=== PATIENT | female | born 1980 | race Caucasian/White ===

== ENCOUNTER 2017-01-30 09:07 | Emergency (ER) | payer OTHER ==
[2017-01-30 09:40] VITALS: RESP 16
--- NOTE | 2017-01-30 10:31 | ED ---
General Adult HPI - General Chief complaint: ENT Stated complaint: Rt ear plugged Time Seen by Provider: 01/30/17 10:00 Source: patient, RN notes reviewed Mode of arrival: ambulatory Limitations: no limitations - History of Present Illness Initial comments: This is a 36-year-old female presents emergency Department complaining of right ear pain. Patient states his been no drainage but does hurt a little bit to move her ear there is also some deep internal pain she states. Patient states was no drainage. Patient states she's not had any upper respiratory symptoms. Patient states she's not been on any water above her head. Patient denies any recent fever chills or cough. Patient denies any difficulty breathing shortest breath. - Related Data Home Medications Medication Instructions Recorded Confirmed HYDROcodone/APAP 10-325MG [[place] 1 tab PO TID 03/28/15 12/22/16 10] Ibuprofen [Advil] 400 mg PO Q6H PRN 12/22/16 12/22/16 Previous Rx's Medication Instructions Recorded Azithromycin [Zithromax Z-pack] 250 mg PO DIRECTED #6 tab 12/22/16 methylPREDNISolone Dose Pack 4 mg PO DIRECTED #21 package 12/22/16 [Medrol Dose Pack] Amoxicillin 500 mg PO Q8H #30 capsule 01/30/17 Ayvskvfq-Owtorsbjq-Vp Otic 5 drops RIGHT EAR TID #10 ml 01/30/17 [Cortisporin Otic Soln] Allergies Allergy/AdvReac Type Severity Reaction Status Date / Time No Known Allergies Allergy Verified 01/30/17 09:50 Review of Systems ROS Statement: Those systems with pertinent positive or pertinent negative responses have been documented in the HPI. ROS Other: All systems not noted in ROS Statement are negative. Past Medical History Past Medical History: Asthma, Diabetes Mellitus Additional Past Medical History / Comment(s): add, bipolar, depression History of Any Multi-Drug Resistant Organisms: MRSA Date of last positivie culture/infection: 2008 MDRO Source:: face Past Surgical History: No Surgical Hx Reported Past Psychological History: ADD/ADHD, Anxiety, Bipolar, Depression, Panic Disorder Smoking Status: Current every day smoker Past Alcohol Use History: None Reported Past Drug Use History: Marijuana General Exam - General Exam Comments Initial Comments: GENERAL Patient is well-developed and well-nourished. Patient is in mild distress. EYES Patient's pupils are equal and round. Extraocular motion is intact ENT Patient's right ear has an edematous ear canal and the tympanic membrane is inflamed. SKIN Unremarkable NEURO The patient is alert and oriented 3 PYSCH Patient has normal interpersonal interactions. MUSCULOSKELETAL All 4 times and full range of motion Limitations: no limitations Course Vital Signs 01/30/17 09:36 Temperature 97.3 F L Pulse Rate 74 Respiratory 16 Rate Blood Pressure 112/60 O2 Sat by Pulse 96 Oximetry Disposition Clinical Impression: Otitis media, Otitis externa Disposition: HOME SELF-CARE Condition: Good Instructions: Earache (ED) Prescriptions: Amoxicillin 500 mg PO Q8H #30 capsule Tqzyiusr-Jieuhylcf-Bh Otic [Cortisporin Otic Soln] 5 drops RIGHT EAR TID #10 ml Referrals: None,Stated [Primary Care Provider] - 1-2 days Time of Disposition: 10:29
[2017-01-30 10:41] VITALS: BP 132/77; PULSE 71; TEMP 97.8
== END 2017-01-30 10:41 | disposition home or self-care (01) ==
LOC: EC 09:07
DX: H66.91 Otitis media, unspecified, right ear (principal); H60.91 Unspecified otitis externa, right ear; F17.200 Nicotine dependence, unspecified, uncomplicated; Z79.891 Long term (current) use of opiate analgesic
CPT/HCPCS: 99282

== ENCOUNTER 2017-07-31 15:34 | Emergency (ER) | payer OTHER ==
[2017-07-31 15:39] VITALS: BP 126/86; RESP 20; TEMP 98.4
--- NOTE | 2017-07-31 15:54 | ED ---
General Adult HPI - General Chief complaint: Upper Respiratory Infection Stated complaint: chest discomfort Time Seen by Provider: 07/31/17 15:40 Source: patient, RN notes reviewed Mode of arrival: ambulatory Limitations: no limitations - History of Present Illness Initial comments: Patient's a 37-year-old female who presents emergency room today with chief complaint of cough congestion over the last day. Does admit to positive sputum production that has been green in color. She denies any fever or body aches. She does admit to a history of bronchitis in the past. She states she believes she has chronic bronchitis. Patient denies any other complaints or symptoms currently. Patient denies any recent fever, chills, shortness of breath, chest pain, back pain, abdominal pain, nausea or vomiting, numbness or tingling, headaches or visual changes, or any other complaints. - Related Data Home Medications Medication Instructions Recorded Confirmed HYDROcodone/APAP 10-325MG [[place] 1 tab PO TID 03/28/15 12/22/16 10] Ibuprofen [Advil] 400 mg PO Q6H PRN 12/22/16 12/22/16 Previous Rx's Medication Instructions Recorded Azithromycin [Zithromax Z-pack] 250 mg PO DIRECTED #6 tab 12/22/16 methylPREDNISolone Dose Pack 4 mg PO DIRECTED #21 package 12/22/16 [Medrol Dose Pack] Amoxicillin 500 mg PO Q8H #30 capsule 01/30/17 Tmquzmwm-Ycbpzblmg-Uf Otic 5 drops RIGHT EAR TID #10 ml 01/30/17 [Cortisporin Otic Soln] Albuterol Inhaler [Ventolin Hfa 1 - 2 puff INHALATION Q4-6H PRN #1 07/31/17 Inhaler] inhaler Azithromycin [Zithromax Z-pack] 0 mg PO DIRECTED #6 tab 07/31/17 predniSONE 50 mg PO DAILY #5 tab 07/31/17 Allergies Allergy/AdvReac Type Severity Reaction Status Date / Time No Known Allergies Allergy Verified 07/31/17 15:38 Review of Systems ROS Statement: Those systems with pertinent positive or pertinent negative responses have been documented in the HPI. ROS Other: All systems not noted in ROS Statement are negative. Past Medical History Past Medical History: Asthma, Diabetes Mellitus Additional Past Medical History / Comment(s): add, bipolar, depression History of Any Multi-Drug Resistant Organisms: MRSA Date of last positivie culture/infection: 2008 MDRO Source:: face Past Surgical History: No Surgical Hx Reported Past Psychological History: ADD/ADHD, Anxiety, Bipolar, Depression, Panic Disorder Smoking Status: Current every day smoker Past Alcohol Use History: None Reported Past Drug Use History: Marijuana General Exam - General Exam Comments Initial Comments: General: The patient is awake and alert, in no distress, and does not appear acutely ill. Eye: Pupils are equal, round and reactive to light, extra-ocular movements are intact. No nystagmus. There is normal conjunctiva bilaterally. No signs of icterus. Ears, nose, mouth and throat: There are moist mucous membranes and no oral lesions. Neck: The neck is supple. Cardiovascular: There is a regular rate and rhythm. No murmur, rub or gallop is appreciated. Respiratory: Expiratory wheeze bilaterally with scattered rhonchi. are non- labored, breath sounds are equal. No stridor, rales. Musculoskeletal: Normal ROM, no tenderness. Strength 5/5. Sensation intact. Pulses equal bilaterally 2+. Neurological: A&O x 3. CN II-XII intact, There are no obvious motor or sensory deficits. Coordination appears grossly intact. Speech is normal. Skin: Skin is warm and dry and no rashes or lesions are noted. Psychiatric: Cooperative, appropriate mood & affect, normal judgment. Limitations: no limitations Course Vital Signs 07/31/17 07/31/17 07/31/17 15:36 16:02 16:18 Temperature 98.4 F Pulse Rate 92 86 84 Respiratory 20 Rate Blood Pressure 126/86 O2 Sat by Pulse 98 Oximetry Medical Decision Making - Medical Decision Making Patient is much improved after breathing treatment. Her vitals are stable. Chest x-ray is negative for any evidence of pneumonia. Patient will be treated for bronchitis. Started on antibiotics, steroids, albuterol inhaler. Disposition Clinical Impression: Acute bronchitis Disposition: HOME SELF-CARE Condition: Good Instructions: Acute Bronchitis (ED) Additional Instructions: Please use medication as discussed. Please follow-up with family doctor in the next 2 days of symptoms have not improved. Please return to emergency room if the symptoms increase or worsen or for any other concerns. Prescriptions: Albuterol Inhaler [Ventolin Hfa Inhaler] 1 - 2 puff INHALATION Q4-6H PRN #1 inhaler PRN Reason: Cough Azithromycin [Zithromax Z-pack] 0 mg PO DIRECTED #6 tab predniSONE 50 mg PO DAILY #5 tab Referrals: Aleks Pereira MD [STAFF PHYSICIAN] - 1-2 days Time of Disposition: 16:27
--- NOTE | 2017-07-31 15:55 | XR ---
EXAMINATION TYPE: XR chest 2V DATE OF EXAM: 07/31/2017 COMPARISON: None HISTORY: 37-year-old female with cough and shortness of breath TECHNIQUE: PA and lateral views FINDINGS: Heart normal size. Aorta and pulmonary vasculature within normal limits. Slightly low lung volumes wi th some crowding vascular markings. Strandy atelectasis mid and lower lungs. No consolidation or pleu ral effusion. IMPRESSION: Strandy areas of atelectasis. No acute cardiopulmonary process.
[2017-07-31] MEDS: IPRATROPIUM-ALBUTEROL 3 ML NEB INHALATION STA (16:02)
[2017-07-31 16:19] VITALS: PULSE 84
== END 2017-07-31 16:38 | disposition home or self-care (01) ==
LOC: EC 15:34
DX: J20.9 Acute bronchitis, unspecified (principal); F17.200 Nicotine dependence, unspecified, uncomplicated; Z79.891 Long term (current) use of opiate analgesic; Z79.899 Other long term (current) drug therapy; Z86.14 Personal history of Methicillin resistant Staphylococcus aureus infection
CPT/HCPCS: 71046; 94640; 99283

== ENCOUNTER 2017-12-13 22:50 | Emergency (ER) | payer OTHER ==
[2017-12-13 22:54] VITALS: RESP 18
--- NOTE | 2017-12-13 23:32 | XR ---
EXAMINATION TYPE: XR wrist complete RT DATE OF EXAM: 12/13/2017 COMPARISON: NONE HISTORY: Wrist pain TECHNIQUE: 4 views FINDINGS: There is no sign of fracture nor dislocation. Joint spaces are normal. Scaphoid is intact. IMPRESSION: Normal right wrist
--- NOTE | 2017-12-13 23:32 | XR ---
EXAMINATION TYPE: XR hand complete RT DATE OF EXAM: 12/13/2017 COMPARISON: NONE HISTORY: Wrist and hand pain TECHNIQUE: 3 views FINDINGS: I see no fracture nor dislocation. Metacarpals are intact. Joint spaces are normal. IMPRESSION: Negative right hand exam.
[2017-12-14 00:19] VITALS: BP 140/65; PULSE 99; TEMP 97.5
--- NOTE | 2017-12-14 01:01 | ED ---
General Adult HPI - General Chief complaint: Extremity Injury, Upper Stated complaint: Wrist injury Time Seen by Provider: 12/13/17 23:31 Source: patient Mode of arrival: ambulatory Limitations: no limitations - History of Present Illness Initial comments: This is a 37-year-old female with past medical history of asthma who presents today for chief complaint of right wrist pain 4 days. Patient states this pain started 4 days ago after punching a wall, she states she punched a wall because she was upset with someone but not in danger. patient states that the pain is localized to proximal forearm, without radiation. The pain has been constant since she punched the wall on Monday. immediately after punching the wall she did notice some swelling of the wrist, but signs of any ecchymosis. she spirits increased pain with movement and also noticed crepitus with certain movements. Patient is prescribed Hendrum 10 mg through pain clinic for chronic pain and took one on Monday for pain management. Since that day she has not taken anything to relieve the wrist pain. She presents today because the pain has not gone away and there is some mild swelling. She is concerned for possible fracture. Patient denies numbness, tingling, paresthesias, loss of sensation, coolness of the extremity, or injury to any other extremity.patient is right-hand dominant - Related Data Home Medications Medication Instructions Recorded Confirmed HYDROcodone/APAP 10-325MG [[place] 1 tab PO TID 03/28/15 12/22/16 10] Ibuprofen [Advil] 400 mg PO Q6H PRN 12/22/16 12/22/16 Previous Rx's Medication Instructions Recorded Azithromycin [Zithromax Z-pack] 250 mg PO DIRECTED #6 tab 12/22/16 methylPREDNISolone Dose Pack 4 mg PO DIRECTED #21 package 12/22/16 [Medrol Dose Pack] Amoxicillin 500 mg PO Q8H #30 capsule 01/30/17 Vaviezjv-Lzxlwyrzn-Qm Otic 5 drops RIGHT EAR TID #10 ml 01/30/17 [Cortisporin Otic Soln] Albuterol Inhaler [Ventolin Hfa 1 - 2 puff INHALATION Q4-6H PRN #1 07/31/17 Inhaler] inhaler Azithromycin [Zithromax Z-pack] 0 mg PO DIRECTED #6 tab 07/31/17 predniSONE 50 mg PO DAILY #5 tab 07/31/17 Ibuprofen [Motrin] 400 mg PO Q6HR PRN 7 Days #28 tab 12/13/17 NS Allergies Allergy/AdvReac Type Severity Reaction Status Date / Time No Known Allergies Allergy Verified 12/13/17 22:54 Review of Systems ROS Statement: Those systems with pertinent positive or pertinent negative responses have been documented in the HPI. ROS Other: All systems not noted in ROS Statement are negative. Constitutional: Denies: fever, chills, weakness Eyes: Denies: vision change Respiratory: Denies: dyspnea Cardiovascular: Denies: chest pain, dyspnea on exertion Gastrointestinal: Denies: abdominal pain, diarrhea, constipation Genitourinary: Denies: dysuria Skin: Reports: other (swelling of the right wrist). Denies: lesions Neurological: Denies: numbness, paresthesias Past Medical History Past Medical History: Asthma, Diabetes Mellitus Additional Past Medical History / Comment(s): add, bipolar, depression History of Any Multi-Drug Resistant Organisms: MRSA Date of last positivie culture/infection: 2008 MDRO Source:: face Past Surgical History: No Surgical Hx Reported Past Psychological History: ADD/ADHD, Anxiety, Bipolar, Depression, Panic Disorder Smoking Status: Current every day smoker Past Alcohol Use History: None Reported Past Drug Use History: Marijuana General Exam - General Exam Comments Initial Comments: this is a well-appearing 37-year-old female, in no acute distress Limitations: no limitations General appearance: alert, in no apparent distress Head exam: Present: atraumatic Eye exam: Present: normal appearance, PERRL Pupils: Present: normal accommodation ENT exam: Present: normal oropharynx, mucous membranes moist Neck exam: Present: normal inspection. Absent: tenderness Respiratory exam: Present: normal lung sounds bilaterally Cardiovascular Exam: Present: regular rate, normal rhythm, normal heart sounds Right Shoulder Exam: Present: normal inspection, full ROM. Absent: tenderness Upper Arm exam: Present: normal inspection, full ROM. Absent: tenderness Elbow exam: Present: normal inspection, full ROM Forearm Wrist exam: Present: full ROM, tenderness, swelling (mild). Absent: ecchymosis, deformity, crepitus, erythema, tenderness over anatomical snuff box Hand Wrist exam: Present: normal inspection, full ROM, tenderness. Absent: swelling, deformity, crepitus, erythema Neuro motor exam: Present: wrist extension intact, thumb opposition intact, fingers 2-5 abduction intact Neurosensory exam: Present: radial nerve intact, ulnar nerve intact, median nerve intact Vascular: Present: normal capillary refill, radial pulse (+2), brachial pulse (+ 2), ulnar pulse (+2) Neurological exam: Present: alert, oriented X3 Psychiatric exam: Present: normal mood Skin exam: Present: warm, dry, intact, normal color. Absent: rash Course Vital Signs 12/13/17 12/14/17 22:51 00:16 Temperature 98.1 F 97.5 F L Pulse Rate 94 99 Respiratory 18 18 Rate Blood Pressure 153/88 140/65 O2 Sat by Pulse 97 98 Oximetry Medical Decision Making - Medical Decision Making This is a well-appearing 37-year-old female who presents today for chief complaint of right wrist pain after punching a wall 4 days ago. She states that she punched a wall because she was upset with someone. Immediately following punching the wall she noticed swelling and pain in her right wrist. The pain is localized to her right wrist that is constant in nature and increases with movement. Patient took her previously prescribed Hendrum 10 mg for pain management, which helped somewhat. Today she complains of right wrist pain, crepitus, swelling. Patient denies erythema, numbness, tingling, paresthesias, loss of sensation, loss of active range of motion, lacerations, fever or chills. Patient presents to the emergency department tonight due to the pain lasting for greater than 4 days. Upon presentation vital signs within normal limits, patient appeared comfortable. Upon inspection there are no lacerations or abrasions of the right knuckles hand or forearm, there is very mild swelling of the right wrist with no evidence of ecchymosis or erythema. No tenderness over the anatomical snuffbox. There is tenderness to palpation of the right wrist, patient is still able to perform full active range of motion of the wrist and hand. Sensation intact of the upper extremity bilaterally. Radial ulnar and median nerve intact. Compartments are soft and compressible. X-rays were performed at triage of the right wrist and hand which revealed no fracture or acute process. An Jin bandage was applied to the right wrist. The case was discussed with attending physician Dr. hill, of who agreed. The patient was discharged with 600 mg ibuprofen tablets every 6 hours for pain management as needed. Pt was instructed to ice wrist as needed for swelling and to follow-up with primary care physician in one to 2 days. Plan was discussed with patient prior to discharge of which she agreed. I do feel the patient is stable and ready for discharge. Patient is instructed to return to the emergency department if symptoms worsen. Disposition Clinical Impression: Acute pain of right wrist Disposition: HOME SELF-CARE Condition: Good Instructions: Wrist Injury (ED) Additional Instructions: Pt is to follow-up with PCP in 1-2 days. OTC ibuprofen q6h PRN for pain management, and ice wrist needed for any swelling Return to the emergency department if you begin to experience worsening symptoms. Prescriptions: Ibuprofen [Motrin] 400 mg PO Q6HR PRN 7 Days #28 tab NS PRN Reason: Pain Is patient prescribed a controlled substance at d/c from ED?: No Referrals: None,Stated [Primary Care Provider] - 1-2 days Time of Disposition: 02:54
== END 2017-12-14 00:16 | disposition home or self-care (01) ==
LOC: EC 22:50
DX: M25.531 Pain in right wrist (principal); F17.200 Nicotine dependence, unspecified, uncomplicated; Z86.14 Personal history of Methicillin resistant Staphylococcus aureus infection; Z79.891 Long term (current) use of opiate analgesic; W22.01XA Walked into wall, initial encounter
CPT/HCPCS: 99283

== ENCOUNTER 2018-02-16 22:50 | Emergency (ER) | payer OTHER ==
[2018-02-16] MEDS ORDERED: LIDOCAINE/EPINEPHR/TETRACAINE 5 ML BOTTLE TOPICAL ONE (23:10)
--- NOTE | 2018-02-16 23:19 | ED ---
Wound/Laceration HPI - General Chief Complaint: Wound/Laceration Stated Complaint: lip lac, hand injury Time Seen by Provider: 02/16/18 23:05 Source: patient, RN notes reviewed, old records reviewed Mode of arrival: ambulatory Limitations: no limitations - History of Present Illness Initial Comments: Patient is a 37 year old female, and she states that she tripped and fell into her car window. Patient states that she hit her face, states her teeth went through her lower lip. Patient also c/o having right thumb pain. - Related Data Home Medications Medication Instructions Recorded Confirmed HYDROcodone/APAP 10-325MG [[place] 1 tab PO TID 03/28/15 12/22/16 10] Ibuprofen [Advil] 400 mg PO Q6H PRN 12/22/16 12/22/16 Previous Rx's Medication Instructions Recorded Azithromycin [Zithromax Z-pack] 250 mg PO DIRECTED #6 tab 12/22/16 methylPREDNISolone Dose Pack 4 mg PO DIRECTED #21 package 12/22/16 [Medrol Dose Pack] Amoxicillin 500 mg PO Q8H #30 capsule 01/30/17 Vjvincer-Bezqgbdxw-Gw Otic 5 drops RIGHT EAR TID #10 ml 01/30/17 [Cortisporin Otic Soln] Albuterol Inhaler [Ventolin Hfa 1 - 2 puff INHALATION Q4-6H PRN #1 07/31/17 Inhaler] inhaler Azithromycin [Zithromax Z-pack] 0 mg PO DIRECTED #6 tab 07/31/17 predniSONE 50 mg PO DAILY #5 tab 07/31/17 Ibuprofen [Motrin] 400 mg PO Q6HR PRN 7 Days #28 tab 12/13/17 NS Amoxicillin 500 mg PO Q12HR #14 cap 02/17/18 Allergies Allergy/AdvReac Type Severity Reaction Status Date / Time No Known Allergies Allergy Verified 02/16/18 23:04 Review of Systems ROS Statement: Those systems with pertinent positive or pertinent negative responses have been documented in the HPI. ROS Other: All systems not noted in ROS Statement are negative. Past Medical History Past Medical History: Asthma, Diabetes Mellitus Additional Past Medical History / Comment(s): add, bipolar, depression History of Any Multi-Drug Resistant Organisms: MRSA Date of last positivie culture/infection: 2008 MDRO Source:: face Past Surgical History: No Surgical Hx Reported Past Psychological History: ADD/ADHD, Anxiety, Bipolar, Depression, Panic Disorder Smoking Status: Current every day smoker Past Alcohol Use History: None Reported Past Drug Use History: Marijuana General Exam - General Exam Comments Initial Comments: 37 year old female, no distress. Limitations: no limitations General appearance: alert, in no apparent distress Head exam: Present: atraumatic, normocephalic, normal inspection Eye exam: Present: normal appearance, PERRL, EOMI. Absent: scleral icterus, conjunctival injection, periorbital swelling ENT exam: Present: normal exam, mucous membranes moist, other (2cm through and through lower lip laveration. ) Neck exam: Present: normal inspection. Absent: tenderness, meningismus, lymphadenopathy Respiratory exam: Present: normal lung sounds bilaterally. Absent: respiratory distress, wheezes, rales, rhonchi, stridor Cardiovascular Exam: Present: regular rate, normal rhythm, normal heart sounds. Absent: systolic murmur, diastolic murmur, rubs, gallop, clicks Extremities exam: Present: normal inspection, full ROM, normal capillary refill. Absent: tenderness, pedal edema, joint swelling, calf tenderness Right Hand Wrist exam: Present: normal inspection, full ROM, tenderness (over distal radius and ulna. ) Neuro motor exam: Present: wrist extension intact, thumb opposition intact, thumb IP flexion intact, thumb adduction intact, fingers 2-5 abduction intact Vascular: Present: normal capillary refill Back exam: Present: normal inspection Neurological exam: Present: alert, oriented X3, CN II-XII intact Psychiatric exam: Present: normal affect, normal mood Skin exam: Present: warm, dry, intact, normal color. Absent: rash Course Vital Signs 02/16/18 02/17/18 23:04 00:39 Temperature 97.8 F 97 F L Pulse Rate 96 84 Respiratory 18 20 Rate Blood Pressure 158/79 150/79 O2 Sat by Pulse 93 L 98 Oximetry Procedures - Laceration Laceration #1 Site: lip (lower lip) Size (cm): 2 Description: linear Depth: [id number] Anesthesia Technique: local infiltration Amount (mls): 4 Pre-repair: wound explored, irrigated extensively Type of Sutures: nylon, vicryl Size of Sutures: other (10, 5 absorbable, 5 nylon) Number of Sutures: 10 Technique: simple, interrupted Patient Tolerated Procedure: well, no complications - Orthopedic Splinting/Casting Injury #1 Side: right Upper Extremity Injury Location: wrist Upper Extremity Immobilizer: volar splint, Jin wrap, synthetic pre-padded splint Medical Decision Making - Medical Decision Making 37 year old with fall, with R wrist pain and lower lip through and through laceration. Patient wrist xray shows ulna styloid fracture, placed in volar splint. Lower lip laceration is through and through, wound was cleaned. Closed with total of [address] patient on amoxicillin for infection prevention. Discussed wound care and ortho follow up. Discussed suture care. - Radiology Data Radiology results: report reviewed Smll hairline fracture over left ulna styloid. Disposition Clinical Impression: Right wrist fracture, Lip laceration Disposition: HOME SELF-CARE Condition: Good Instructions: Facial Laceration (ED) Additional Instructions: Patient has a follow up with primary care physician and discharge specialist. Remain in splint. Take antibiotic as prescribed. Monitor for any infection. Please return to the emergency room in 7 days to have sutures removed. Please leave wound covered for the first 24-48 hours and then leave open to air after that time. Please use clean soap and water to clean the suture area to prevent scabbing over the top of your sutures. Please watch for any signs of infection which may include but not limited to increased pain, swelling, redness, fever or chills. Please return to the emergency room if any signs of infection do occur. Please return to the emergency room for any other concerns or complications. Prescriptions: Amoxicillin 500 mg PO Q12HR #14 cap Is patient prescribed a controlled substance at d/c from ED?: No Referrals: None,Stated [Primary Care Provider] - 1-2 days Jaime Lee MD [STAFF PHYSICIAN] - 1-2 days Time of Disposition: 00:26
--- NOTE | 2018-02-16 23:42 | XR ---
EXAMINATION TYPE: XR wrist complete RT DATE OF EXAM: 02/16/2018 COMPARISON: NONE HISTORY: Fall. Wrist pain TECHNIQUE: 4 views FINDINGS: I see no definite fracture nor dislocation. Joint spaces are normal. Scaphoid is intact. Th ere is a lucent line across the base of the ulnar styloid process. IMPRESSION: Possible ulnar styloid process hairline fracture.
[2018-02-17] MEDS ORDERED: AMOXICILLIN 500MG STARTER PACK 3 CAP BTL PO STA ×2 (00:25→00:34)
[2018-02-17 00:39] VITALS: BP 150/79; PULSE 84; RESP 20; TEMP 97
== END 2018-02-17 00:40 | disposition home or self-care (01) ==
LOC: EC 22:50
DX: S52.611A Displaced fracture of right ulna styloid process, initial encounter for closed fracture (principal); S01.511A Laceration without foreign body of lip, initial encounter; F17.200 Nicotine dependence, unspecified, uncomplicated; W01.198A Fall on same level from slipping, tripping and stumbling with subsequent striking against other object, initial encounter
CPT/HCPCS: 12011; 29125; 99284

== ENCOUNTER 2018-04-29 14:57 | Emergency (ER) | payer OTHER ==
[2018-04-29 15:02] VITALS: TEMP 97.6
[2018-04-29 15:49] LABS: Basophils # (A) 0.1 k/uL (0-0.2); Basophils % (A) 1 %; Eosinophils # (A) 0.3 k/uL (0-0.7); Eosinophils % (A) 3 %; HCT 41.7 % (34.0-46.0); HGB 13.3 gm/dL (11.4-16.0); Lymphocytes # (A) 2.1 k/uL (1.0-4.8); Lymphocytes % (A) 25 %; MCH 28.8 pg (25.0-35.0); MCHC 31.9 g/dL (31.0-37.0); MCV 90.3 fL (80.0-100.0); Monocytes # (A) 0.4 k/uL (0-1.0); Monocytes % (A) 5 %; Neutrophils # (A) 5.6 k/uL (1.3-7.7); Neutrophils % (A) 65 %; Platelet Count 253 k/uL (150-450); RBC 4.62 m/uL (3.80-5.40); RDW 13.3 % (11.5-15.5); WBC 8.5 k/uL (3.8-10.6)
[2018-04-29 15:57] LABS: ALT 34 U/L (9-52); AST 34 U/L (14-36); Albumin 3.5 g/dL (3.5-5.0); Alkaline Phosphatase 61 U/L (38-126); Anion Gap 7 mmol/L; Blood Urea Nitrogen 11 mg/dL (7-17); Calcium 9.1 mg/dL (8.4-10.2); Carbon Dioxide 23 mmol/L (22-30); Chloride 109 mmol/L (98-107); Glucose 160 mg/dL (74-99); Partial Thromboplastin Time 22.1 sec (22.0-30.0); Potassium 4.1 mmol/L (3.5-5.1); Prothrombin Time 9.5 sec (9.0-12.0); Sodium 139 mmol/L (137-145); Total Bilirubin 0.5 mg/dL (0.2-1.3); Total Protein 6.1 g/dL (6.3-8.2)
--- NOTE | 2018-04-29 16:19 | ED ---
General Adult HPI - General Source: patient, RN notes reviewed Mode of arrival: ambulatory Limitations: no limitations <Song Smart - Last Filed: 04/29/18 17:17> <Sarabjit Billings - Last Filed: 04/29/18 18:14> - General Chief complaint: Fall Stated complaint: FALL Time Seen by Provider: 04/29/18 15:06 - History of Present Illness Initial comments: Patient is a 38-year-old female presented to the emergency room today with a complaint of a fall occurred 2 days ago. She does admit that she was going down her basement steps and she tripped falling forward. She does admit that she does not believe there is any loss conscious. Denies any headache. Patient denies any visual change. She does admit that she's had some bruising to the left side of her ribs. She states that they seem to be feeling better. She does not that since the fall she noticed that she is been having some vaginal bleeding. She states started approximately 45 minutes after the fall. She does admit to a history of PCOS. She states that she does have a regular periods. She states that she did have a menstral cycle one week ago that was normal. She states she has been using tampons. She does admit that she's just been trying to take it easy last few days because very sore. She denies any other complaints or symptoms. Patient denies any recent fever, chills, shortness of breath, chest pain, back pain, nausea or vomiting, numbness or tingling, dysuria or hematuria, constipation or diarrhea, headaches or visual changes, or any other complaints. (Song Smart) - Related Data Home Medications Medication Instructions Recorded Confirmed HYDROcodone/APAP 10-325MG [[place] 1 tab PO QID PRN 03/28/15 04/29/18 10] ALPRAZolam [Xanax] 1 mg PO HS PRN 04/29/18 04/29/18 Dextroamphetamine/Amphetamine 20 mg PO TID 04/29/18 04/29/18 [Adderall] Allergies Allergy/AdvReac Type Severity Reaction Status Date / Time No Known Allergies Allergy Verified 04/29/18 16:05 Review of Systems ROS Other: All systems not noted in ROS Statement are negative. <Song Smart - Last Filed: 04/29/18 17:17> ROS Other: All systems not noted in ROS Statement are negative. <Sarabjit Billings - Last Filed: 04/29/18 18:14> ROS Statement: Those systems with pertinent positive or pertinent negative responses have been documented in the HPI. Past Medical History Past Medical History: Asthma, Diabetes Mellitus Additional Past Medical History / Comment(s): add, bipolar, depression History of Any Multi-Drug Resistant Organisms: MRSA Date of last positivie culture/infection: 2008 MDRO Source:: face Past Surgical History: No Surgical Hx Reported Past Psychological History: ADD/ADHD, Anxiety, Bipolar, Depression, Panic Disorder Smoking Status: Current every day smoker Past Alcohol Use History: None Reported Past Drug Use History: Marijuana <Song Smart - Last Filed: 04/29/18 17:17> General Exam Limitations: no limitations <Song Smart - Last Filed: 04/29/18 17:17> <Sarabjit Billings - Last Filed: 04/29/18 18:14> - General Exam Comments Initial Comments: General: The patient is awake and alert, in no distress, and does not appear acutely ill. Eye: Pupils are equal, round and reactive to light. Extra-ocular movements are intact. No nystagmus. There is normal conjunctiva bilaterally. No signs of icterus. Ears, nose, mouth and throat: There are moist mucous membranes and no oral lesions. Neck: The neck is supple, there is no tenderness or JVD. Cardiovascular: There is a regular rate and rhythm. No murmur, rub or gallop is appreciated. Respiratory: Lungs are clear to auscultation, respirations are non-labored, breath sounds are equal. No wheezes, stridor, rales, or rhonchi. Gastrointestinal: Soft on palpation. Mild tenderness left lower quadrant. No guarding, rebound or CVA tenderness. Musculoskeletal: Normal ROM, no tenderness. No cervical, thoracic or lumbar spine tenderness. Sensation intact. Strength 5/5. Pulses equal bilaterally 2+. Neurological: A&O x 3. CN II-XII intact, There are no obvious motor or sensory deficits. Coordination appears grossly intact. Speech is normal. Skin: Skin is warm and dry and no rashes or lesions are noted. Psychiatric: Cooperative, appropriate mood & affect, normal judgment. : [employer] ENGINEERMIRANDA Bunch wasn't for exam. Patient does have some small blood in the vaginal vault. No active bleeding. No tenderness on exam. (Song Smart) Vital Signs 04/29/18 14:59 Temperature 97.6 F Pulse Rate 84 Respiratory 16 Rate Blood Pressure 148/94 O2 Sat by Pulse 100 Oximetry Medical Decision Making - Lab Data Result diagrams: 04/29/18 15:32 04/29/18 15:32 <Song Smart - Last Filed: 04/29/18 17:17> - Lab Data Result diagrams: 04/29/18 15:32 04/29/18 15:32 <Sarabjit Billings - Last Filed: 04/29/18 18:14> - Medical Decision Making 38 yo female with trauma 2 days prior to arrival and vaginal bleeding. No vaginal trauma. Pelvic exam reveals only minimal bleeding, no laceration. Ultrasound obtained both of the uterus and abdomen which is negative for free fluid or acute pathology. Patient is stable hemoglobin, stable vitals. Likely vaginal bleeding is not related to trauma. This likely related to see her last and dysfunctional uterine bleeding. Patient will follow-up with her primary care physician. Return with worsening or changing symptoms. (Sarabjit Billings) - Lab Data Lab Results 04/29/18 04/29/18 04/29/18 Range/Units 15:32 15:32 15:32 WBC 8.5 (3.8-10.6) k/uL RBC 4.62 (3.80-5.40) m/uL Hgb 13.3 (11.4-16.0) gm/dL Hct 41.7 (34.0-46.0) % MCV 90.3 (80.0-100.0) fL MCH 28.8 (25.0-35.0) pg MCHC 31.9 (31.0-37.0) g/dL RDW 13.3 (11.5-15.5) % Plt Count 253 (150-450) k/uL Neutrophils % 65 % Lymphocytes % 25 % Monocytes % 5 % Eosinophils % 3 % Basophils % 1 % Neutrophils # 5.6 (1.3-7.7) k/uL Lymphocytes # 2.1 (1.0-4.8) k/uL Monocytes # 0.4 (0-1.0) k/uL Eosinophils # 0.3 (0-0.7) k/uL Basophils # 0.1 (0-0.2) k/uL PT 9.5 (9.0-12.0) sec INR 1.0 (<1.2) APTT 22.1 (22.0-30.0) sec Sodium 139 (137-145) mmol/L Potassium 4.1 (3.5-5.1) mmol/L Chloride 109 H (98-107) mmol/L Carbon Dioxide 23 (22-30) mmol/L Anion Gap 7 mmol/L BUN 11 (7-17) mg/dL Creatinine 0.60 (0.52-1.04) mg/dL Est GFR (CKD-EPI)AfAm >90 (>60 ml/min/1.73 sqM) Est GFR (CKD-EPI)NonAf >90 (>60 ml/min/1.73 sqM) Glucose 160 H (74-99) mg/dL Calcium 9.1 (8.4-10.2) mg/dL Total Bilirubin 0.5 (0.2-1.3) mg/dL AST 34 (14-36) U/L ALT 34 (9-52) U/L Alkaline Phosphatase 61 (38-126) U/L Total Protein 6.1 L (6.3-8.2) g/dL Albumin 3.5 (3.5-5.0) g/dL Urine Color Urine Appearance (Clear) Urine pH (5.0-8.0) Ur Specific [place] (1.001-1.035) Urine Protein (Negative) Urine Glucose (UA) (Negative) Urine Ketones (Negative) Urine Blood (Negative) Urine Nitrite (Negative) Urine Bilirubin (Negative) Urine Urobilinogen (<2.0) mg/dL Ur Leukocyte Esterase (Negative) Urine RBC (0-5) /hpf Ur Squamous Epith Cells (0-4) /hpf Urine Bacteria (None) /hpf Urine Mucus (None) /hpf Urine HCG, Qual (Not Detectd) 04/29/18 04/29/18 Range/Units 16:02 16:02 WBC (3.8-10.6) k/uL RBC (3.80-5.40) m/uL Hgb (11.4-16.0) gm/dL Hct (34.0-46.0) % MCV (80.0-100.0) fL MCH (25.0-35.0) pg MCHC (31.0-37.0) g/dL RDW (11.5-15.5) % Plt Count (150-450) k/uL Neutrophils % % Lymphocytes % % Monocytes % % Eosinophils % % Basophils % % Neutrophils # (1.3-7.7) k/uL Lymphocytes # (1.0-4.8) k/uL Monocytes # (0-1.0) k/uL Eosinophils # (0-0.7) k/uL Basophils # (0-0.2) k/uL PT (9.0-12.0) sec INR (<1.2) APTT (22.0-30.0) sec Sodium (137-145) mmol/L Potassium (3.5-5.1) mmol/L Chloride (98-107) mmol/L Carbon Dioxide (22-30) mmol/L Anion Gap mmol/L BUN (7-17) mg/dL Creatinine (0.52-1.04) mg/dL Est GFR (CKD-EPI)AfAm (>60 ml/min/1.73 sqM) Est GFR (CKD-EPI)NonAf (>60 ml/min/1.73 sqM) Glucose (74-99) mg/dL Calcium (8.4-10.2) mg/dL Total Bilirubin (0.2-1.3) mg/dL AST (14-36) U/L ALT (9-52) U/L Alkaline Phosphatase (38-126) U/L Total Protein (6.3-8.2) g/dL Albumin (3.5-5.0) g/dL Urine Color Yellow Urine Appearance Cloudy H (Clear) Urine pH 5.5 (5.0-8.0) Ur Specific [place] 1.027 (1.001-1.035) Urine Protein Trace H (Negative) Urine Glucose (UA) Negative (Negative) Urine Ketones Negative (Negative) Urine Blood Moderate H (Negative) Urine Nitrite Negative (Negative) Urine Bilirubin Negative (Negative) Urine Urobilinogen 2.0 (<2.0) mg/dL Ur Leukocyte Esterase Small H (Negative) Urine RBC 10 H (0-5) /hpf Ur Squamous Epith Cells 4 (0-4) /hpf Urine Bacteria Rare H (None) /hpf Urine Mucus Rare H (None) /hpf Urine HCG, Qual Not Detected (Not Detectd) Disposition <Song Smart - Last Filed: 04/29/18 17:17> Is patient prescribed a controlled substance at d/c from ED?: No Time of Disposition: 18:14 <Sarabjit Billings - Last Filed: 04/29/18 18:14> Clinical Impression: Vaginal bleeding, Fall Disposition: HOME SELF-CARE Condition: Good Instructions: Contusion in Adults (ED), Dysfunctional Uterine Bleeding (ED) Referrals: Jonathan Ibarra MD [STAFF PHYSICIAN] - 1-2 days
[2018-04-29 16:26] LABS: Appearance,Urine Cloudy (Clear); Bacteria,Urine Rare /hpf; Bilirubin,Urine Negative (Negative); Blood,Urine Moderate (Negative); Color,Urine Yellow; Glucose,Urine (UA) Negative (Negative); Ketones,Urine Negative (Negative); Leukocyte Esterase,Urine Small (Negative); Mucus,Urine Rare /hpf; Nitrite,Urine Negative (Negative); PH, Urine 5.5 (5.0-8.0); Protein,Urine Trace (Negative); RBC,Urine 10 /hpf (0-5); Specific Gravity,Urine 1.027 (1.001-1.035); Squamous Epithelial Cell,Urine 4 /hpf (0-4)
--- NOTE | 2018-04-29 17:27 | US ---
EXAMINATION TYPE: US abdomen complete DATE OF EXAM: 04/29/2018 COMPARISON: NONE CLINICAL HISTORY: Pain. Abdominal pain for 2 days. Nausea EXAM MEASUREMENTS: Liver Length: 20.2 cm Gallbladder Wall: 0.2 cm CBD: 0.3 cm Spleen: 10.8 cm Right Kidney: 10.9 x 4.6 x 4.3 cm Left Kidney: 10.9 x 6.4 x 5.8 cm *Technical limitations due to patient's body habitus and overlying bowel content Pancreas: Obscured by bowel gas Liver: enlarged, attenuating Gallbladder: stones Evidence for sonographic Lee's sign: no CBD: wnl Spleen: wnl Right Kidney: no evidence of hydronephrosis Left Kidney: no evidence of hydronephrosis Upper IVC: wnl Abd Aorta: visualized portions appear wnl, bifurcation obscured IMPRESSION: Numerous gallstones. No dilated ducts. No focal liver defect. Liver appears enlarged.
--- NOTE | 2018-04-29 17:28 | US ---
EXAMINATION TYPE: US transvaginal DATE OF EXAM: 04/29/2018 COMPARISON: NONE CLINICAL HISTORY: vag bleeding. Vaginal bleeding for 2 days post fall. PCOS TECHNIQUE: Transvaginal (TV). Date of LMP: march EXAM MEASUREMENTS: Uterus: 8.3 x 3.8 x 3.8 cm Endometrial Stripe: 0.4 cm Right Ovary: unable to visualize Left Ovary: 3.1 x 2.4 x 2.4 cm 1. Uterus: Anteverted, heterogeneous. Nabothian cysts. 2. Endometrium: appears wnl 3. Right Ovary: Obscured by overlying bowel gas 4. Left Ovary: follicles noted Spectral, color and waveform doppler imaging shows good arterial and venous flow within the left ov rl; there is no evidence for ovarian torsion. 5. Bilateral Adnexa: wnl 6. Posterior cul-de-sac: wnl IMPRESSION: No evidence of ovarian torsion. Right ovary not seen. No free fluid. Normal uterus and en dometrium.
--- NOTE | 2018-04-29 17:40 | XR ---
EXAMINATION TYPE: XR chest 2V DATE OF EXAM: 04/29/2018 COMPARISON: 07/31/2017 HISTORY: Pain TECHNIQUE: Frontal and lateral views of the chest are obtained. FINDINGS: Heart and mediastinum are normal. Lungs are clear. Diaphragm is normal. Bony thorax appear s normal. IMPRESSION: Normal chest. No change.
[2018-04-29 18:32] VITALS: BP 125/87; PULSE 81; RESP 17
== END 2018-04-29 18:30 | disposition home or self-care (01) ==
LOC: EC 14:57
DX: Z04.3 Encounter for examination and observation following other accident (principal); N93.9 Abnormal uterine and vaginal bleeding, unspecified; R10.814 Left lower quadrant abdominal tenderness; F90.9 Attention-deficit hyperactivity disorder, unspecified type; F41.0 Panic disorder [episodic paroxysmal anxiety]; F31.9 Bipolar disorder, unspecified; F17.200 Nicotine dependence, unspecified, uncomplicated; Z86.14 Personal history of Methicillin resistant Staphylococcus aureus infection; Z79.899 Other long term (current) drug therapy
CPT/HCPCS: 36415; 71046; 76700; 76830; 80053; 81001; 81025; 85025; 85610; 85730; 87077; 87086; 87186; 93976; 99284

== ENCOUNTER 2018-08-30 18:53 | Emergency (ER) | payer OTHER ==
[2018-08-30] MEDS ORDERED: DIPH,PERTUS(ACELL)TETVAC-LF 0.5 ML VIAL IM ONE (19:10)
[2018-08-30] MEDS ORDERED: KETOROLAC 60 MG/2 ML VIAL IM STA (19:10)
[2018-08-30 19:12] VITALS: BP 132/80; PULSE 95; RESP 18; TEMP 97
--- NOTE | 2018-08-30 19:34 | ED ---
General Adult HPI - General Chief complaint: Extremity Injury, Lower Stated complaint: foot lac Time Seen by Provider: 08/30/18 19:08 Source: patient, RN notes reviewed, old records reviewed Mode of arrival: ambulatory Limitations: no limitations - History of Present Illness Initial comments: 38-year-old female patient past medical history of asthma, diabetes, bipolar, depression presents to ED with left great toe pain. Patient reports that approximately 2 AM this morning patient had a door slam on her left great toe. Patient now has pain with ambulation. Patient has no laceration. Patient has a some ecchymoses. Patient has any other injury, denies other complaints. Patient states that she is not . Systemic: Pt denies fatigue, myalgia, fever/chills, rash. Pt denies weakness, night sweats, weight loss. Neuro: Pt denies headache, visual disturbances, syncope or pre-syncope. HEENT: Pt denies ocular discharge or irritation, otalgia, rhinorrhea, pharyngitis or notable lymphadenopathy. Cardiopulmonary: Pt denies chest pain, SOB, heart palpitations, dyspnea on exertion. Abdominal/GI: Pt denies abdominal pain, n/v/d. : Pt denies dysuria, burning w/ urination, frequency/urgency. Denies new onset urinary or bowel incontinence. MSK: Pt denies myalgia, loss of strength or function in extremities. Neuro: Pt denies new onset weakness, paresthesias. - Related Data Home Medications Medication Instructions Recorded Confirmed HYDROcodone/APAP 10-325MG [[place] 1 tab PO QID PRN 03/28/15 04/29/18 10] ALPRAZolam [Xanax] 1 mg PO HS PRN 04/29/18 04/29/18 Dextroamphetamine/Amphetamine 20 mg PO TID 04/29/18 04/29/18 [Adderall] Allergies Allergy/AdvReac Type Severity Reaction Status Date / Time No Known Allergies Allergy Verified 08/30/18 19:09 Review of Systems ROS Statement: Those systems with pertinent positive or pertinent negative responses have been documented in the HPI. ROS Other: All systems not noted in ROS Statement are negative. Past Medical History Past Medical History: Asthma, Diabetes Mellitus Additional Past Medical History / Comment(s): add, bipolar, depression History of Any Multi-Drug Resistant Organisms: MRSA Date of last positivie culture/infection: 2009 MDRO Source:: face Past Surgical History: No Surgical Hx Reported Past Psychological History: ADD/ADHD, Anxiety, Bipolar, Depression, Panic Disorder Smoking Status: Current every day smoker Past Alcohol Use History: None Reported Past Drug Use History: Marijuana General Exam - General Exam Comments Initial Comments: Constitutional: NAD, AOX3, Pt has pleasant affect. HEENT: NC/AT, trachea midline, neck supple, no lymphadenopathy. Posterior phary nx non erythematous, without exudates. External ears appear normal, without discharge. Mucous membranes moist. Eyes PERRLA, EOM intact. There is no scleral icterus. No pallor noted. Cardiopulmonary: RRR, no murmurs, rubs or gallops, no JVD noted. Lungs CTAB in anterior and posterior gonzalez. No peripheral edema. Abdominal exam: Abdomen soft and non-distended. Abdomen non-tender to palpation in all 4 quadrants. Bowel sounds active in LLQ. No hepatosplenomegaly. No ecchymosis Neuro: CN II-XII grossly intact. No nuchal rigidity. MSK: Left great toe mildly tender to palpation, mild ecchymoses noted and distal pad. Flexion extension intact. Patient laboratory with pain. Neurovascularly intact. No other areas of tenderness. No posterior calf tenderness bilaterally, homans sign negative bilaterally. Posterior tibialis and radial pulse +2 bilaterally. Sensation intact in upper and lower extremities. Full active ROM in upper and lower extremities, 5/5 stregnth. Limitations: no limitations Course Vital Signs 08/30/18 19:09 Temperature 97 F L Pulse Rate 95 Respiratory 18 Rate Blood Pressure 132/80 O2 Sat by Pulse 96 Oximetry Medical Decision Making - Medical Decision Making 38-year-old female patient past medical history of asthma, diabetes, bipolar, depression presents to ED with left great toe pain. Patient reports that approximately 2 AM this morning patient had a door slam on her left great toe. Patient now has pain with ambulation. Patient has no laceration. Patient has a some ecchymoses. Patient has any other injury, denies other complaints. Patient states that she is not . Patient vital signs stable, afebrile. Left great toe mildly tender to palpation, mild ecchymoses noted and distal pad. Flexion extension intact. Patient laboratory with pain. Neurovascularly intact. No other areas of tenderness. Plain film of left foot displayed acute intra-articular fracture of the base of the distal pharynx of great toe. Patient placed in postop walking boot. Patient not bear weight, use crutches. Patient to follow-up with primary care provider and orthopedic consult 1-2 days. Patient return to ER if Condition worsen. Discussed with Dr. Pope. Disposition Clinical Impression: Fractured great toe Disposition: HOME SELF-CARE Condition: Stable Instructions (If sedation given, give patient instructions): Toe Fracture (ED) Additional Instructions: Patient to adhere to previously discussed treatment plan and will take medication(s) as directed. Patient to follow up with PCP in 1-2 days. Patient to return to ED if symptoms do not improve. Please do not bear weight on her ankle. Please use crutches. Please follow-up with orthopedic consult 1-2 days. Please return to ER if he symptoms develop or if condition worsens in any way. Is patient prescribed a controlled substance at d/c from ED?: No Referrals: Jonathan Ibarra MD [Primary Care Provider] - 1-2 days Giovanni Zaldivar DO [Medical Doctor] - 1-2 days
--- NOTE | 2018-08-30 19:46 | XR ---
EXAMINATION TYPE: XR foot complete LT DATE OF EXAM: 08/30/2018 COMPARISON: NONE HISTORY: Foot pain TECHNIQUE: 3 views FINDINGS: There is hallux valgus. Metatarsals are intact. There is nondisplaced fracture of the base of the distal phalanx of the big toe. Fracture line extends to the articular surface. IMPRESSION: Acute intra-articular fracture of the base of the distal phalanx big toe left foot. Moderate hallux valgus.
== END 2018-08-30 20:24 | disposition home or self-care (01) ==
LOC: EC 18:53
DX: S92.422A Displaced fracture of distal phalanx of left great toe, initial encounter for closed fracture (principal); F90.9 Attention-deficit hyperactivity disorder, unspecified type; F17.200 Nicotine dependence, unspecified, uncomplicated; Z79.899 Other long term (current) drug therapy; Z86.14 Personal history of Methicillin resistant Staphylococcus aureus infection; Z23 Encounter for immunization; W22.8XXA Striking against or struck by other objects, initial encounter
CPT/HCPCS: 99283 ×2; 90471 ×2; 96372 ×2; 73630; 90715; J1885

== ENCOUNTER 2018-10-22 17:03 | Emergency (ER) | payer OTHER ==
[2018-10-22 17:12] VITALS: RESP 18
--- NOTE | 2018-10-22 18:43 | XR ---
EXAMINATION TYPE: XR chest 2V DATE OF EXAM: 10/22/2018 COMPARISON: 04/29/2018 HISTORY: Cough and congestion TECHNIQUE: Frontal and lateral views of the chest are obtained. FINDINGS: Heart and mediastinum are normal. Lungs are clear. Diaphragm is normal. Bony thorax appear s normal. IMPRESSION: Normal chest. No change.
--- NOTE | 2018-10-22 18:48 | XR ---
EXAMINATION TYPE: XR shoulder complete LT DATE OF EXAM: 10/22/2018 COMPARISON: NONE HISTORY: Shoulder pain. TECHNIQUE: 2 views FINDINGS: I see no fracture nor dislocation. Joint spaces are normal. There are no pathologic calcifications IMPRESSION: Negative left shoulder exam.
--- NOTE | 2018-10-22 19:00 | ED ---
General Adult HPI - General Chief complaint: ENT Stated complaint: ENT & Shoulder Pain Time Seen by Provider: 10/22/18 17:23 Source: patient, RN notes reviewed, old records reviewed Mode of arrival: ambulatory Limitations: no limitations - History of Present Illness Initial comments: 38-year-old female patient past medical history of chronic pain, ADHD, anxiety presents ED approximately 2 days of mild cough, sore throat congestion. Patient any nausea vomiting diarrhea chest pain shortness of breath, fevers or chills. Patient is additionally complained of approximately 1 month of right shoulder pain. Patient initially injured his shoulder while doing housework states that it is painful range of motion lifting exercises. Patient denies all other complaints. Systemic: Pt denies fatigue, myalgia, fever/chills, rash. Pt denies weakness, night sweats, weight loss. Neuro: Pt denies headache, visual disturbances, syncope or pre-syncope. HEENT: Pt denies ocular discharge or irritation, otalgia, rhinorrhea, pharyngitis or notable lymphadenopathy. Cardiopulmonary: Pt denies chest pain, SOB, heart palpitations, dyspnea on exertion. Abdominal/GI: Pt denies abdominal pain, n/v/d. : Pt denies dysuria, burning w/ urination, frequency/urgency. Denies new onset urinary or bowel incontinence. MSK: Pt denies myalgia, loss of strength or function in extremities. Neuro: Pt denies new onset weakness, paresthesias. - Related Data Home Medications Medication Instructions Recorded Confirmed HYDROcodone/APAP 10-325MG [[place] 1 tab PO QID PRN 03/28/15 10/22/18 10] ALPRAZolam [Xanax] 1 mg PO HS PRN 04/29/18 10/22/18 Dextroamphetamine/Amphetamine 20 mg PO TID 04/29/18 10/22/18 [Adderall] PARoxetine HCL [Paxil] 30 mg PO DAILY 10/22/18 10/22/18 Allergies Allergy/AdvReac Type Severity Reaction Status Date / Time No Known Allergies Allergy Verified 10/22/18 17:12 Review of Systems ROS Statement: Those systems with pertinent positive or pertinent negative responses have been documented in the HPI. ROS Other: All systems not noted in ROS Statement are negative. Past Medical History Past Medical History: Asthma, Diabetes Mellitus Additional Past Medical History / Comment(s): add, bipolar, depression History of Any Multi-Drug Resistant Organisms: MRSA Date of last positivie culture/infection: 2008 MDRO Source:: face Past Surgical History: No Surgical Hx Reported Past Psychological History: ADD/ADHD, Anxiety, Bipolar, Depression, Panic Disorder Smoking Status: Current every day smoker Past Alcohol Use History: None Reported Past Drug Use History: Marijuana General Exam - General Exam Comments Initial Comments: Constitutional: NAD, AOX3, Pt has pleasant affect. HEENT: NC/AT, trachea midline, neck supple, no lymphadenopathy. Posterior pharynx mildly erythematous, without exudates. External ears appear normal, without discharge. Mucous membranes moist. Eyes PERRLA, EOM intact. There is no scleral icterus. No pallor noted. Cardiopulmonary: RRR, no murmurs, rubs or gallops, no JVD noted. Lungs CTAB in anterior and posterior gonzalez. No peripheral edema. Abdominal exam: Abdomen soft and non-distended. Abdomen non-tender to palpation in all 4 quadrants. Bowel sounds active in LLQ. No hepatosplenomegaly. No ecchymosis Neuro: CN II-XII grossly intact. No nuchal rigidity. MSK: Right shoulder mildly tender to the patient in anterior aspect. Painful arc positive. empty can test positive. Radial pulse +2. No posterior calf tenderness bilaterally, homans sign negative bilaterally. Posterior tibialis and radial pulse +2 bilaterally. Sensation intact in upper and lower extremities. Full active ROM in upper and lower extremities, 5/5 stregnth. Limitations: no limitations Course Vital Signs 10/22/18 17:10 Temperature 97.7 F Pulse Rate 75 Respiratory 18 Rate Blood Pressure 114/79 O2 Sat by Pulse 98 Oximetry Medical Decision Making - Medical Decision Making 38-year-old female patient past medical history of chronic pain, ADHD, anxiety presents ED approximately 2 days of mild cough, sore throat congestion. Patient any nausea vomiting diarrhea chest pain shortness of breath, fevers or chills. Patient is additionally complained of approximately 1 month of right shoulder pain. Patient initially injured his shoulder while doing housework states that it is painful range of motion lifting exercises. Patient denies all other complaints. Patient vital signs stable, afebrile. Physical exam displayed: Right shoulder mildly tender to the patient in anterior aspect. Painful arc positive. empty can test positive. Posterior pharynx mildly erythematous, without exudates. Laboratory investigations investigations revealed negative chest x-ray. Patient has viral syndrome. Patient discharged to follow up with primary care provider in 1-2 days. Pt will return to ER if condition worsens. Case discussed with Dr. Pope. - Lab Data Lab Results 10/22/18 10/22/18 Range/Units 18:05 18:05 Urine HCG, Qual Not Detected (Not Detectd) Influenza Type A RNA Not Detected (Not Detectd) Influenza Type B (PCR) Not Detected (Not Detectd) Disposition Clinical Impression: Viral syndrome Disposition: HOME SELF-CARE Condition: Stable Instructions (If sedation given, give patient instructions): Shoulder Sprain (ED), Viral Syndrome (ED) Additional Instructions: Patient to adhere to previously discussed treatment plan and will take medication(s) as directed. Patient to follow up with PCP in 1-2 days. Patient to return to ED if symptoms do not improve. Follow-up with primary care provider 12 days. Follow with orthopedic consult 1- 2 days. May use tylenol or ibuprofen for shoulder pain. Return to ER if condition worsens. Is patient prescribed a controlled substance at d/c from ED?: No Referrals: Jonathan Ibarra MD [Primary Care Provider] - 1-2 days Jhonny Delgado MD [Medical Doctor] - 1-2 days
--- NOTE | 2018-10-22 19:13 | XR ---
EXAMINATION TYPE: XR shoulder complete RT DATE OF EXAM: 10/22/2018 COMPARISON: NONE HISTORY: Pain TECHNIQUE: 3 views FINDINGS: I see no fracture nor dislocation. Joint spaces are normal. There are no pathologic calcifi cations. IMPRESSION: Negative right shoulder exam.
[2018-10-22 19:52] VITALS: BP 121/65; PULSE 78; TEMP 97.6
== END 2018-10-22 19:52 | disposition home or self-care (01) ==
LOC: EC 17:03
DX: B34.9 Viral infection, unspecified (principal); G89.29 Other chronic pain; M25.511 Pain in right shoulder; F90.9 Attention-deficit hyperactivity disorder, unspecified type; F41.0 Panic disorder [episodic paroxysmal anxiety]; F31.9 Bipolar disorder, unspecified; F17.200 Nicotine dependence, unspecified, uncomplicated; Z79.899 Other long term (current) drug therapy
CPT/HCPCS: 71046; 81025; 87502; 99284

== ENCOUNTER 2019-03-08 00:33 | Emergency (ER) | payer OTHER ==
[2019-03-08 00:50] VITALS: BP 137/89; PULSE 97; RESP 18; TEMP 98.9
[2019-03-08] MEDS ORDERED: ACETAMINOPHEN TAB 500 MG TAB PO STA (01:06)
[2019-03-08] MEDS ORDERED: KETOROLAC 30 MG/ML 1 ML VIAL IM STA (01:06)
[2019-03-08] MEDS ORDERED: PANTOPRAZOLE 40 MG TABLET PO STA (01:07)
--- NOTE | 2019-03-08 01:23 | ED ---
Extremity Problem HPI - General Chief complaint: Extremity Problem,Nontraumatic Stated complaint: Shoulder pain Time Seen by Provider: 03/08/19 00:54 Source: patient Mode of arrival: ambulatory Limitations: physical limitation - History of Present Illness Initial comments: Patient is 38-year-old female presenting to emergency Department with a chief complaint of shoulder pain. Patient reports she had a traumatic accident in the right shoulder 2 months ago and has not resolved. Patient reports going to the ED where an x-ray was obtained and it was negative. Patient states that she was diagnosed with a possible rotator cuff injury. Patient was advised to follow-up with orthopedics. Patient reports going back to her primary care who ordered an MRI. Patient has an MRI scheduled next couple days. Patient reports the pain has increased in severity over the last few days and she is unable to sleep. Patient reports taking [id number] ibuprofen and [place] does feel her pain management physician. Patient reports pain with shoulder abduction above 90. Patient also reports shooting pain starting at the shoulder and radiating distally. Patient denies any numbness or tingling. - Related Data Home Medications Medication Instructions Recorded Confirmed HYDROcodone/APAP 10-325MG [[place] 1 tab PO QID PRN 03/28/15 03/08/19 10] ALPRAZolam [Xanax] 1 mg PO HS PRN 04/29/18 03/08/19 Dextroamphetamine/Amphetamine 20 mg PO TID 04/29/18 03/08/19 [Adderall] PARoxetine HCL [Paxil] 30 mg PO DAILY 10/22/18 03/08/19 Previous Rx's Medication Instructions Recorded Albuterol Nebulized [Ventolin 2.5 mg INHALATION Q4H #50 nebu 12/19/18 Nebulized] Allergies Allergy/AdvReac Type Severity Reaction Status Date / Time No Known Allergies Allergy Verified 03/08/19 00:49 Review of Systems ROS Statement: Those systems with pertinent positive or pertinent negative responses have been documented in the HPI. ROS Other: All systems not noted in ROS Statement are negative. Past Medical History Past Medical History: Asthma, Diabetes Mellitus Additional Past Medical History / Comment(s): add, bipolar, depression History of Any Multi-Drug Resistant Organisms: MRSA Date of last positivie culture/infection: 2008 MDRO Source:: face Past Surgical History: No Surgical Hx Reported Past Psychological History: ADD/ADHD, Anxiety, Bipolar, Depression, Panic Disorder Smoking Status: Current every day smoker Past Alcohol Use History: Occasional Past Drug Use History: Marijuana General Exam Limitations: no limitations General appearance: alert, in no apparent distress Head exam: Present: atraumatic, normocephalic, normal inspection Eye exam: Present: normal appearance, PERRL, EOMI Pupils: Present: normal accommodation ENT exam: Present: normal exam, normal oropharynx, mucous membranes moist, TM's normal bilaterally, normal external ear exam Neck exam: Present: normal inspection, full ROM Respiratory exam: Present: normal lung sounds bilaterally Cardiovascular Exam: Present: regular rate, normal rhythm, normal heart sounds Extremities exam: Present: normal inspection (No bony abnormalities), tenderness (Posterior deltoid tenderness), normal capillary refill, other (+2 ulnar and radial pulses bilaterally.). Absent: full ROM (Limited range of motion above 90 with abduction. Positive Hoeck's test. Positive empty can test.), pedal edema, joint swelling Back exam: Present: normal inspection, full ROM Neurological exam: Present: alert, oriented X3 Psychiatric exam: Present: normal affect, normal mood Skin exam: Present: warm, intact, normal color Course Vital Signs 03/08/19 00:46 Temperature 98.9 F Pulse Rate 97 Respiratory 18 Rate Blood Pressure 137/89 O2 Sat by Pulse 94 L Oximetry Medical Decision Making - Medical Decision Making Patient 38-year-old female presenting to emergency Department with a chief complaint of right shoulder pain. Patient reports a nontraumatic injury approximately 2 months ago and she came to the ED for evaluation and was diagnosed with a shoulder sprain. Patient reports the pain continued and the following month she went to separate ED where she was diagnosed with a possible rotator cuff injury. Patient reports she went to her primary care following that who scheduled an MRI. Patient reports over past few days the pain has increased in severity and is not enabling her to sleep. On physical examination patient does have a positive Yoon and empty can test. Patient does have pain with abduction above 90. I reviewed the imaging and there is no fractures or dislocations. Based on imaging and physical examination I do suspect a rotator cuff injury. Patient advised to follow-up with an customer resolution specialist for further management. Patient given analgesia. Strict return parameters were thoroughly discussed the patient was understanding and agreeable. Case discussed with physician. Disposition Clinical Impression: Shoulder pain, right Disposition: HOME SELF-CARE Condition: Stable Instructions (If sedation given, give patient instructions): Rotator Cuff Injury (ED) Additional Instructions: Please follow up with orthopedics. Please return to emergency department if symptoms worsen. Is patient prescribed a controlled substance at d/c from ED?: No Referrals: Jonathan Ibarra MD [Primary Care Provider] - 1-2 days Time of Disposition: 01:31
== END 2019-03-08 01:49 | disposition home or self-care (01) ==
LOC: EC 00:33
DX: M25.511 Pain in right shoulder (principal); R60.9 Edema, unspecified; M25.40 Effusion, unspecified joint; F90.9 Attention-deficit hyperactivity disorder, unspecified type; F31.9 Bipolar disorder, unspecified; F41.9 Anxiety disorder, unspecified; F41.0 Panic disorder [episodic paroxysmal anxiety]; F17.200 Nicotine dependence, unspecified, uncomplicated; Z79.899 Other long term (current) drug therapy; Z87.828 Personal history of other (healed) physical injury and trauma
CPT/HCPCS: 99283; 96372; J1885

== ENCOUNTER → 2019-03-29 | Outpatient (CLI) | payer OTHER ==
--- NOTE | 2019-03-29 13:01 | MR ---
EXAMINATION TYPE: MR shoulder RT wo con DATE OF EXAM: 03/29/2019 COMPARISON: Plain film 10/22/2018 HISTORY: Right shoulder pain TECHNIQUE: Multiplanar, multisequence imaging of the right shoulder is performed without contrast. FINDINGS: Rotator Cuff: There is abnormal increased signal involving the rotator cuff. Findings suggest underly ing tendinosis. Fluid signal is present at the undersurface which may represent a partial thickness t ear at the level of the insertion of the rotator cuff. The rotator cuff is attenuated. Acromioclavicular Joint: Acromioclavicular joint arthropathy is present, this mass effect and muscula r tendinous junction of supraspinatus. Glenohumeral Joint: Intact Labrum: There is some intrasubstance signal present. Biceps Tendon: The long head of biceps is in normal location within bicipital groove. Bone marrow signal: Probable pseudocysts present within the humeral head. Other: Fluid signal present in the subacromial subdeltoid bursa. IMPRESSION: Correlate for impingement, there is rotator cuff tendinosis and possibly partial thickness tear. Acro mioclavicular joint arthropathy.
== END | disposition home or self-care (01) ==
LOC: RADMRIMAIN 09:27
PROVIDERS: ATTEND Family Medicine
DX: M12.811 Other specific arthropathies, not elsewhere classified, right shoulder (principal)

== ENCOUNTER 2019-05-28 14:26 | Emergency (ER) | payer OTHER ==
[2019-05-28 14:41] VITALS: BP 126/85; PULSE 87; RESP 18; TEMP 100
--- NOTE | 2019-05-28 14:59 | ED ---
URI HPI - General Chief Complaint: Upper Respiratory Infection Stated Complaint: throat,chest,head cold Time Seen by Provider: 05/28/19 14:42 Source: patient Mode of arrival: ambulatory Limitations: no limitations - History of Present Illness Initial Comments: 39-year-old female presents today for chief complaint of sore throat cough. Patient states that she has had a sore throat and cough for the past few days she states her son has had similar symptoms for the past 5 days. She states she has had chills that she has a fever. Patient denies any chest pain she states she has had a slight headache denies any neck stiffness or photophobia. Patient denies abdominal pain diarrhea or vomiting patient denies . Patient denies any difficulty breathing or shortness of breath. Patient denies rash or any other complaints. upon arrival patient temperature 100F appears nontoxic. - Related Data Home Medications Medication Instructions Recorded Confirmed HYDROcodone/APAP 10-325MG [[place] 1 tab PO QID PRN 03/28/15 03/08/19 10] ALPRAZolam [Xanax] 1 mg PO HS PRN 04/29/18 03/08/19 Dextroamphetamine/Amphetamine 20 mg PO TID 04/29/18 03/08/19 [Adderall] PARoxetine HCL [Paxil] 30 mg PO DAILY 10/22/18 03/08/19 Previous Rx's Medication Instructions Recorded Albuterol Nebulized [Ventolin 2.5 mg INHALATION Q4H #50 nebu 12/19/18 Nebulized] Azithromycin [Zithromax Z-pack] 0 mg PO DIRECTED #6 tab 05/28/19 predniSONE 20 mg PO BID 4 Days #8 tab 05/28/19 Allergies Allergy/AdvReac Type Severity Reaction Status Date / Time No Known Allergies Allergy Verified 05/28/19 14:40 Review of Systems ROS Statement: Those systems with pertinent positive or pertinent negative responses have been documented in the HPI. ROS Other: All systems not noted in ROS Statement are negative. Past Medical History Past Medical History: Asthma, Diabetes Mellitus Additional Past Medical History / Comment(s): add, bipolar, depression History of Any Multi-Drug Resistant Organisms: MRSA Date of last positivie culture/infection: 2008 MDRO Source:: face Past Surgical History: No Surgical Hx Reported Past Psychological History: ADD/ADHD, Anxiety, Bipolar, Depression, Panic Disord er Smoking Status: Current every day smoker Past Alcohol Use History: Occasional Past Drug Use History: Marijuana General Exam - General Exam Comments Initial Comments: General: The patient is awake and alert, in no distress, and does not appear acutely ill. Eye: +3 mm pupils are equal, round and reactive to light, extra-ocular movements are intact. No nystagmus. There is normal conjunctiva bilaterally. No signs of icterus. No photophobia Ears, nose, mouth and throat: There are moist mucous membranes and no oral lesions. Oropharynx was mildly erythematous there is no tonsillar enlargement exudates or lesions. Uvula midline. Tympanic membranes are not erythematous or is no effusions bulging or retraction. No tenderness to palpation of the mastoid. No anterior cervical lymphadenopathy. Rhinorrhea, clear and bilateral nares. No tripoding, no drooling. Neck: The neck is supple, there is no tenderness or JVD. No nuchal rigidity Cardiovascular: There is a regular rate and rhythm. No murmur, rub or gallop is appreciated. Respiratory: Lungs are clear to auscultation, respirations are non-labored, breath sounds are equal. No wheezes, stridor, rales, or rhonchi. No retractions or abdominal breathing. Gastrointestinal: Soft, non-distended, non-tender abdomen without masses or organomegaly noted. There is no rebound or guarding present. Bowel sounds are unremarkable. Musculoskeletal: Normal ROM, no tenderness. Strength 5/5. Sensation intact. Ra dial pulses equal bilaterally 2+. Neurological: A&O x 3. CN II-XII intact grossly, There are no obvious motor or sensory deficits. Coordination appears grossly intact. Speech appears normal, no muffling. Skin: Skin is warm and dry and no rashes or lesions are noted. No extremity edema Psychiatric: Cooperative Limitations: no limitations Course Vital Signs 05/28/19 14:39 Temperature 100.0 F H Pulse Rate 87 Respiratory 18 Rate Blood Pressure 126/85 O2 Sat by Pulse 97 Oximetry Medical Decision Making - Medical Decision Making Well appearing 39 year old female presenting for cough sore throat. Throat mildly erythematous no tonsillar enlargement or exudates or lesions noted. Patient has low-grade fever. + sick contacts. Patient lungs clear however with low grade fever concern for bronchitis vs possible developing pnuemonia. Patient denies CP, SOB. oxygenating well on RA. Will be treated with z-pack steroids. Patient agreeable with care plan and discharge. Discussed case with Dr. Damico who is agreeable with care plan and discharge. Disposition Clinical Impression: URI (upper respiratory infection) Disposition: HOME SELF-CARE Condition: Good Instructions (If sedation given, give patient instructions): Upper Respiratory Infection (ED) Additional Instructions: Please use medication as discussed. Please follow-up with family doctor in the next 2 days of symptoms have not improved. Please return to emergency room if the symptoms increase or worsen or for any other concerns. Prescriptions: predniSONE 20 mg PO BID 4 Days #8 tab Azithromycin [Zithromax Z-pack] 0 mg PO DIRECTED #6 tab Is patient prescribed a controlled substance at d/c from ED?: No Referrals: Jonathan Ibarra MD [Primary Care Provider] - 1-2 days Time of Disposition: 14:59
== END 2019-05-28 15:10 | disposition home or self-care (01) ==
LOC: EC 14:26
DX: J02.9 Acute pharyngitis, unspecified (principal); F90.9 Attention-deficit hyperactivity disorder, unspecified type; F41.0 Panic disorder [episodic paroxysmal anxiety]; F41.9 Anxiety disorder, unspecified; F31.9 Bipolar disorder, unspecified; F17.200 Nicotine dependence, unspecified, uncomplicated; Z79.899 Other long term (current) drug therapy; Z86.14 Personal history of Methicillin resistant Staphylococcus aureus infection
CPT/HCPCS: 99283

== ENCOUNTER 2019-08-29 16:36 | Emergency (ER) | payer OTHER ==
[2019-08-29 16:57] VITALS: BP 116/81; RESP 18; TEMP 98.4
[2019-08-29] MEDS ORDERED: IPRATROPIUM-ALBUTEROL 3 ML NEB INHALATION STA (17:32)
--- NOTE | 2019-08-29 17:59 | ED ---
URI HPI - General Chief Complaint: Upper Respiratory Infection Stated Complaint: wheezing/congestion Time Seen by Provider: 08/29/19 17:11 Source: patient Mode of arrival: ambulatory Limitations: no limitations - History of Present Illness Initial Comments: Patient is a 39-year-old female presenting to emergency Department with complaints of a cough, wheezing that has been going on for 3 days. Patient states she was admitted at [facility] last week for 4 days for a COPD exacerbation. She recently finished a course of azithromycin as well as st eroids. Patient states she felt better for 2-3 days and then her symptoms restarted. She did go to her PCPs office today who started her on Levaquin as well as continued at home breathing treatments. Patient states she comes in today not feeling better and wishes to have a second opinion. Patient denies any fever, chills, nausea, vomiting, chest pain. She does admit shortness of breath. She does admit to being an every day smoker. She denies any recent travel, history of blood clots. She has no other complaints at this time. Upon arrival to the ER, her vital signs are stable. - Related Data Home Medications Medication Instructions Recorded Confirmed HYDROcodone/APAP 10-325MG [[place] 1 tab PO QID PRN 03/28/15 03/08/19 10] ALPRAZolam [Xanax] 1 mg PO HS PRN 04/29/18 03/08/19 Dextroamphetamine/Amphetamine 20 mg PO TID 04/29/18 03/08/19 [Adderall] PARoxetine HCL [Paxil] 30 mg PO DAILY 10/22/18 03/08/19 Previous Rx's Medication Instructions Recorded Albuterol Nebulized [Ventolin 2.5 mg INHALATION Q4H #50 nebu 12/19/18 Nebulized] Azithromycin [Zithromax Z-pack] 0 mg PO DIRECTED #6 tab 05/28/19 predniSONE [Deltasone] 20 mg PO BID 4 Days #8 tab 05/28/19 Allergies Allergy/AdvReac Type Severity Reaction Status Date / Time No Known Allergies Allergy Verified 08/29/19 16:55 Review of Systems ROS Statement: Those systems with pertinent positive or pertinent negative responses have been documented in the HPI. ROS Other: All systems not noted in ROS Statement are negative. Past Medical History Past Medical History: Asthma, Diabetes Mellitus Additional Past Medical History / Comment(s): add, bipolar, depression History of Any Multi-Drug Resistant Organisms: MRSA Date of last positivie culture/infection: 2008 MDRO Source:: face Past Surgical History: No Surgical Hx Reported Past Psychological History: ADD/ADHD, Anxiety, Bipolar, Depression, Panic Disorder Smoking Status: Current every day smoker Past Alcohol Use History: Occasional Past Drug Use History: Marijuana General Exam - General Exam Comments Initial Comments: GENERAL: Well-appearing, well-nourished and in no acute distress. HEAD: Atraumatic, normocephalic. EYES: Pupils equal round and reactive to light, extraocular movements intact, sclera anicteric, conjunctiva are normal. ENT: TMs normal, nares patent, oropharynx clear without exudates. Moist mucous membranes. NECK: Normal range of motion, supple without lymphadenopathy or JVD. LUNGS: Generalized wheezing throughout her lung gonzalez, expiratory wheezing. No rales or rhonchi. HEART: Regular rate and rhythm without murmurs, rubs or gallops. ABDOMEN: Soft, nontender, normoactive bowel sounds. No guarding, no rebound. No masses appreciated. : Deferred EXTREMITIES: Normal range of motion, no pitting or edema. No clubbing or cyanosis. NEUROLOGICAL: Normal speech, normal gait. PSYCH: Normal mood, normal affect. SKIN: Warm, Dry, normal turgor, no rashes or lesions noted. Limitations: no limitations Course Vital Signs 08/29/19 08/29/19 08/29/19 16:55 17:56 18:08 Temperature 98.4 F Pulse Rate 101 H 84 88 Respiratory 18 Rate Blood Pressure 116/81 O2 Sat by Pulse 97 Oximetry Medical Decision Making - Medical Decision Making Patient is a 39-year-old female presenting with a cough and wheezing for the last 3 days. She was recently treated for COPD exacerbation at a different hospital last week. Patient did have a follow-up with PCP today and she was started on Levaquin as well as continue with DuoNeb medications at home. She did have a breathing treatment here with minimal improvement. Her chest x-ray shows partial right lower lobe suggesting bronchial pneumonia. I discussed these findings with the patient. Patient's will continue with Levaquin and her nebulizer treatments at home. I recommended follow-up with a surgeon's assistant and she states she does have 3 different surgeon's assistant in mind and will be calling them tomorrow. Patient is stable for discharge at this time. Return parameters were discussed with the patient she verbalized understanding. I counseled the patient for smoking cessation for greater than 3 minutes. She is in agreement with this plan of care. Case discussed with Dr. Montalvo. Disposition Clinical Impression: Pneumonia Disposition: HOME SELF-CARE Condition: Stable Instructions (If sedation given, give patient instructions): Pneumonia (ED) Additional Instructions: Please return to the Emergency Department if symptoms worsen or any other concerns. Continue with already prescribed Levaquin. Follow up with pulmonology as discussed. Continue with at home nebulizer treatments as well. Is patient prescribed a controlled substance at d/c from ED?: No Referrals: Jonathan Ibarra MD [Primary Care Provider] - 1-2 days
[2019-08-29 18:09] VITALS: PULSE 88
--- NOTE | 2019-08-29 18:59 | XR ---
EXAMINATION: XR chest 2V DATE AND TIME: 08/29/2019 5:45 PM CLINICAL INDICATION: PHH; cough, wheezing TECHNIQUE: Departmental protocol COMPARISON: 12/19/2018 FINDINGS: The overlying soft tissues are prominent. Lungs are positive for a subtle right infrahilar ill-defined added opacity corresponding to the right lower lobe on the lateral radiograph. Remainder of the lungs are clear and well-expanded bilaterally . The pleural spaces are negative. The cardiac silhouette is not enlarged. The remainder of the mediastinal silhouette is unremarkable. The skeletal structures and soft tissues are negative for acute findings. IMPRESSION: Partial right lower lobe ill-defined consolidation suggesting bronchopneumonia; would advise 9 week f ollow-up radiographs to prove resolution.
== END 2019-08-29 19:26 | disposition home or self-care (01) ==
LOC: EC 16:36
DX: J18.9 Pneumonia, unspecified organism (principal); E11.9 Type 2 diabetes mellitus without complications; F31.9 Bipolar disorder, unspecified; F41.0 Panic disorder [episodic paroxysmal anxiety]; F90.9 Attention-deficit hyperactivity disorder, unspecified type; F17.200 Nicotine dependence, unspecified, uncomplicated; Z79.899 Other long term (current) drug therapy
CPT/HCPCS: 71046; 94640; 99285

== ENCOUNTER 2019-12-22 21:08 | Emergency (ER) | payer OTHER ==
[2019-12-22 21:27] VITALS: BP 139/86; PULSE 98; RESP 20; TEMP 98.2
[2019-12-22] MEDS ORDERED: MORPHINE SULFATE 4 MG/ML SYRINGE IM STA (21:55)
[2019-12-22] MEDS ORDERED: KETOROLAC 30 MG/ML 1 ML VIAL IM STA (21:55)
--- NOTE | 2019-12-22 21:56 | ED ---
General Adult HPI - General Chief complaint: Extremity Problem,Nontraumatic Stated complaint: R Knee Pain Time Seen by Provider: 12/22/19 21:27 Source: patient, family Mode of arrival: ambulatory Limitations: no limitations - History of Present Illness Initial comments: 39-year-old female patient presents to the emergency department today for evaluation of right knee pain. Patient states she's had the pain for the last few months. States this seems to be worsening over the last 2 days after she was doing a lot of work around the house. States that she does have swelling over the area. States her home [place] was not helping to control her pain. States she is also taking ibuprofen. Patient denies any injury to the knee. Denies any redness or warmth. Denies any fever or chills. Denies history of surgery to the knee. Patient denies any headache, neck pain, back pain, chest pain, shortness of breath, dizziness, weakness, abdominal pain, nausea, vomiting, or difficulties with bowel movements or urination. - Related Data Home Medications Medication Instructions Recorded Confirmed HYDROcodone/APAP 10-325MG [[place] 1 tab PO QID PRN 03/28/15 03/08/19 10] ALPRAZolam [Xanax] 1 mg PO HS PRN 04/29/18 03/08/19 Dextroamphetamine/Amphetamine 20 mg PO TID 04/29/18 03/08/19 [Adderall] PARoxetine HCL [Paxil] 30 mg PO DAILY 10/22/18 03/08/19 Previous Rx's Medication Instructions Recorded Albuterol Nebulized [Ventolin 2.5 mg INHALATION Q4H #50 nebu 12/19/18 Nebulized] Azithromycin [Zithromax Z-pack] 0 mg PO DIRECTED #6 tab 05/28/19 predniSONE [Deltasone] 20 mg PO BID 4 Days #8 tab 05/28/19 Allergies Allergy/AdvReac Type Severity Reaction Status Date / Time No Known Allergies Allergy Verified 12/22/19 21:27 Review of Systems ROS Statement: Those systems with pertinent positive or pertinent negative responses have been documented in the HPI. ROS Other: All systems not noted in ROS Statement are negative. Past Medical History Past Medical History: Asthma, Diabetes Mellitus Additional Past Medical History / Comment(s): add, bipolar, depression History of Any Multi-Drug Resistant Organisms: MRSA Date of last positivie culture/infection: 2008 MDRO Source:: face Past Surgical History: No Surgical Hx Reported Past Psychological History: ADD/ADHD, Anxiety, Bipolar, Depression, Panic Disorder Smoking Status: Current every day smoker Past Alcohol Use History: Occasional Past Drug Use History: Marijuana General Exam Limitations: no limitations General appearance: alert, in no apparent distress, other (This is a well- developed, well-nourished adult female patient in no acute distress. Vital signs upon presentation are temperature 98.2F, pulse 98, respirations 20, blood pressure 139/86, pulse ox 97% on room air.) Respiratory exam: Present: normal lung sounds bilaterally. Absent: respiratory distress, wheezes, rales, rhonchi, stridor Cardiovascular Exam: Present: regular rate, normal rhythm, normal heart sounds. Absent: systolic murmur, diastolic murmur, rubs, gallop, clicks Extremities exam: Present: full ROM, tenderness (Right anterior), normal capillary refill, other (No pain with valgus or varus maneuvers. Patient does exhibit full range of motion. Skin to the right leg is pink, warm, dry. Cap refills less than 3 seconds. Pedal and posttibial pulses are 2+ and equal bilaterally.). Absent: normal inspection, pedal edema, joint swelling, calf tenderness Neurological exam: Present: alert, oriented X3, CN II-XII intact Psychiatric exam: Present: normal affect, normal mood Skin exam: Present: warm, dry, intact, normal color. Absent: rash Course Vital Signs 12/22/19 21:23 Temperature 98.2 F Pulse Rate 98 Respiratory 20 Rate Blood Pressure 139/86 O2 Sat by Pulse 97 Oximetry Medical Decision Making - Medical Decision Making 39-year-old female patient presents to the emergency department today for evaluation of right knee pain for the last 2 months. Physical examination is unremarkable. She is neurovascularly intact to the right lower extremity. Patient describes a clicking sensation when she walks. States that she has anterior knee pain especially with increased activity. We did discuss possible meniscus injury as a cause for her symptoms. She does take [place] at home she is urged to continue these medications as needed. She is instructed to follow-up with orthopedic specialty for further evaluation as soon as possible. She is instructed to follow-up with her primary care physician for recheck in 1-2 days. Return parameters were discussed in detail. She verbalizes understanding and agrees with this plan. Disposition Clinical Impression: Right knee pain Disposition: HOME SELF-CARE Condition: Good Instructions (If sedation given, give patient instructions): Knee Pain (ED) Additional Instructions: Rest the knee. Continue anti-inflammatories at home pain medication for relief. Consider obtaining an [id number] knee brace. Follow-up with clinical trials specialist for further evaluation as soon as possible, discuss MRI. Return to the emergency department immediately for any new, worsening, or concerning symptoms. Is patient prescribed a controlled substance at d/c from ED?: No Referrals: Jonathan Ibarra MD [Primary Care Provider] - 1-2 days Jhonny Delgado MD [Medical Doctor] - 1-2 days Time of Disposition: 21:56
== END 2019-12-22 22:10 | disposition home or self-care (01) ==
LOC: EC 21:08
DX: M25.561 Pain in right knee (principal); R22.41 Localized swelling, mass and lump, right lower limb; F41.9 Anxiety disorder, unspecified; F31.9 Bipolar disorder, unspecified; F41.0 Panic disorder [episodic paroxysmal anxiety]; F90.9 Attention-deficit hyperactivity disorder, unspecified type; F17.200 Nicotine dependence, unspecified, uncomplicated; Z79.899 Other long term (current) drug therapy; Z86.14 Personal history of Methicillin resistant Staphylococcus aureus infection
CPT/HCPCS: 99283; 96372 ×2; J2270; J1885

== ENCOUNTER 2020-01-28 16:09 | Emergency (ER) | payer OTHER ==
[2020-01-28 16:15] VITALS: BP 127/83; RESP 18; TEMP 97.5
[2020-01-28] MEDS ORDERED: methylPREDNISolone SOD SUCCI 125 MG/2 ML VIAL IM STA (16:42)
[2020-01-28] MEDS ORDERED: IPRATROPIUM-ALBUTEROL 3 ML NEB INHALATION STA (16:42)
--- NOTE | 2020-01-28 17:01 | XR ---
EXAMINATION TYPE: XR chest 2V DATE OF EXAM: 01/28/2020 COMPARISON: Chest x-ray August 29, 2019. HISTORY: History of COPD with cough and shortness of breath. TECHNIQUE: Frontal and lateral views of the chest are obtained. FINDINGS: There is no new suspicious focal air space opacity, pleural effusion, or pneumothorax seen . Somewhat low lung volumes redemonstrated. The cardiac silhouette size remains within normal limits . The osseous structures are intact. IMPRESSION: No new acute pulmonary process.
--- NOTE | 2020-01-28 17:10 | ED ---
General Adult HPI - General Chief complaint: Upper Respiratory Infection Stated complaint: sore throat/headache/wheezing Time Seen by Provider: 01/28/20 16:29 Source: patient, RN notes reviewed Mode of arrival: ambulatory - History of Present Illness Initial comments: 39-year-old femalewith a past medical history of asthma and COPD presents to the emergency room for a chief complaint of cough. Patient reports that she went camping this weekend and when she came back yesterday she started to develop a cough and shortness of breath. States she feels like she is wheezing. States this feels a previous COPD exacerbation. Cough is productive. Patient reports that sheis in every day smoker but has tried to cut back on smoking. She states she has never followed up with her primary care doctor for her see the but was told she had it at a hospital visit.she denies fevers or chills. Denies chest pain.Patient has no other complaints at this time including shortness of breath, chest pain, abdominal pain, nausea or vomiting, headache, or visual changes. - Related Data Home Medications Medication Instructions Recorded Confirmed HYDROcodone/APAP 10-325MG [[place] 1 tab PO QID PRN 03/28/15 03/08/19 10] ALPRAZolam [Xanax] 1 mg PO HS PRN 04/29/18 03/08/19 Dextroamphetamine/Amphetamine 20 mg PO TID 04/29/18 03/08/19 [Adderall] PARoxetine HCL [Paxil] 30 mg PO DAILY 10/22/18 03/08/19 Previous Rx's Medication Instructions Recorded Albuterol Nebulized [Ventolin 2.5 mg INHALATION Q4H #50 nebu 12/19/18 Nebulized] Azithromycin [Zithromax Z-pack] 0 mg PO DIRECTED #6 tab 05/28/19 predniSONE [Deltasone] 20 mg PO BID 4 Days #8 tab 05/28/19 Albuterol Inhaler [Ventolin Hfa 2 puff INHALATION Q4H PRN #1 01/28/20 Inhaler] inhaler Azithromycin [Zithromax Z-pack] 250 mg PO DIRECTED #6 tab 01/28/20 predniSONE 50 mg PO DAILY #5 tablet 01/28/20 Allergies Allergy/AdvReac Type Severity Reaction Status Date / Time No Known Allergies Allergy Verified 01/28/20 16:14 Review of Systems ROS Statement: Those systems with pertinent positive or pertinent negative responses have been documented in the HPI. ROS Other: All systems not noted in ROS Statement are negative. Past Medical History Past Medical History: Asthma, Diabetes Mellitus Additional Past Medical History / Comment(s): add, bipolar, depression History of Any Multi-Drug Resistant Organisms: MRSA Date of last positivie culture/infection: 2008 MDRO Source:: face Past Surgical History: No Surgical Hx Reported Past Psychological History: ADD/ADHD, Anxiety, Bipolar, Depression, Panic Disorder Past Alcohol Use History: Occasional Past Drug Use History: Marijuana General Exam General appearance: alert, in no apparent distress Head exam: Present: atraumatic, normocephalic, normal inspection Eye exam: Present: normal appearance, PERRL, EOMI. Absent: scleral icterus, conjunctival injection, periorbital swelling ENT exam: Present: normal exam Neck exam: Present: normal inspection, full ROM. Absent: tenderness, meningismus, lymphadenopathy Respiratory exam: Present: wheezes (wheezing noted in all lung gonzalez). Absent: respiratory distress, rales, rhonchi, stridor Cardiovascular Exam: Present: regular rate, normal rhythm, normal heart sounds. Absent: systolic murmur, diastolic murmur, rubs, gallop, clicks GI/Abdominal exam: Present: soft, normal bowel sounds. Absent: distended, tenderness, guarding, rebound, rigid Neurological exam: Present: alert Course Vital Signs 01/28/20 01/28/20 01/28/20 16:10 17:26 17:43 Temperature 97.5 F L Pulse Rate 92 74 78 Respiratory 18 Rate Blood Pressure 127/83 O2 Sat by Pulse 97 Oximetry Medical Decision Making - Medical Decision Making Vitals are stable. Patient is 97-100% on room air. Heart rate is in the 70s. Patient does have wheezing noted laterally. Chest x-ray was performed which showed no new acute pulmonary process. Viveros virus pending. Patient was given reading treatment as well as steroids. After 2 DuoNebs she did have improvement in symptoms. I ambulate the patient and she maintained oxygen saturation between 98-100%. At this time I discussed it patient admission versus discharge. Patient prefers to try outpatient medication. She was given steroids and inhalers. She was also given azithromycin for COPD exacerbation. She will return for any worsening symptoms. She was also counseled on smoking cessation. Disposition Clinical Impression: COPD exacerbation Disposition: HOME SELF-CARE Condition: Good Instructions (If sedation given, give patient instructions): COPD (Chronic Obstructive Pulmonary Disease) (ED) Additional Instructions: please take steroid as directed. Use inhaler as directed. Take antibiotic. This was prescribed here pharmacy. If your symptoms are worsening return to the emergency room. Otherwise follow-up with your doctor in one to 2 days. Prescriptions: predniSONE 50 mg PO DAILY #5 tablet Albuterol Inhaler [Ventolin Hfa Inhaler] 2 puff INHALATION Q4H PRN #1 inhaler PRN Reason: Shortness Of Breath Azithromycin [Zithromax Z-pack] 250 mg PO DIRECTED #6 tab Is patient prescribed a controlled substance at d/c from ED?: No Referrals: Jonathan Ibarra MD [Primary Care Provider] - 1-2 days Time of Disposition: 18:00
[2020-01-28 17:43] VITALS: PULSE 78
== END 2020-01-28 18:11 | disposition home or self-care (01) ==
LOC: EC 16:09
DX: J44.1 Chronic obstructive pulmonary disease with (acute) exacerbation (principal); F41.9 Anxiety disorder, unspecified; F32.9 Major depressive disorder, single episode, unspecified; F41.0 Panic disorder [episodic paroxysmal anxiety]; F90.9 Attention-deficit hyperactivity disorder, unspecified type; F17.200 Nicotine dependence, unspecified, uncomplicated; Z79.899 Other long term (current) drug therapy; Z20.828 Contact with and (suspected) exposure to other viral communicable diseases
CPT/HCPCS: 94640; 71046; 99283; 96372; U0003; J2930

== ENCOUNTER 2020-03-20 20:36 | Emergency (ER) | payer OTHER ==
[2020-03-20 20:42] VITALS: BP 133/85; PULSE 90; RESP 16; TEMP 98.8
[2020-03-20] MEDS ORDERED: HYDROcodone/APAP 10-325MG 1 EACH TAB PO ONE (21:01)
--- NOTE | 2020-03-20 21:06 | ED ---
Extremity Problem HPI - General Chief complaint: Extremity Problem,Nontraumatic Stated complaint: L Knee & R Foot Pain Time Seen by Provider: 03/20/20 20:47 Source: patient Mode of arrival: ambulatory Limitations: no limitations - History of Present Illness Initial comments: 40-year-old female patient presents to the emergency department today for evalua tion of her right knee and her left foot. Patient states that for the last few months she has been having pain to the right knee. Patient states over the last few days the knee has become more swollen and painful. She was seen and evaluated in the emergency department about a month ago for similar symptoms and has not yet followed up. Patient denies any known injury to the knee. States she does take [place] 10 at home and is not helping. Patient states she is also having some mild left lateral foot pain. States that she does have a "lump" on the top of the foot which is possibly causing the pain. She denies any redness, drainage, or known injury. Patient denies any headache, neck pain, back pain, chest pain, shortness of breath, dizziness, weakness, abdominal pain, nausea, vomiting, or difficulties with bowel movements or urination. - Related Data Home Medications Medication Instructions Recorded Confirmed HYDROcodone/APAP 10-325MG [[place] 1 tab PO QID PRN 03/28/15 03/08/19 10] ALPRAZolam [Xanax] 1 mg PO HS PRN 04/29/18 03/08/19 Dextroamphetamine/Amphetamine 20 mg PO TID 04/29/18 03/08/19 [Adderall] PARoxetine HCL [Paxil] 30 mg PO DAILY 10/22/18 03/08/19 Previous Rx's Medication Instructions Recorded Albuterol Nebulized [Ventolin 2.5 mg INHALATION Q4H #50 nebu 12/19/18 Nebulized] Azithromycin [Zithromax Z-pack (6 0 mg PO DIRECTED #6 tab 05/28/19 tabs)] predniSONE [Deltasone] 20 mg PO BID 4 Days #8 tab 05/28/19 Albuterol Inhaler [Ventolin Hfa 2 puff INHALATION Q4H PRN #1 01/28/20 Inhaler] inhaler Azithromycin [Zithromax Z-pack (6 250 mg PO DIRECTED #6 tab 01/28/20 tabs)] predniSONE 50 mg PO DAILY #5 tablet 01/28/20 Allergies Allergy/AdvReac Type Severity Reaction Status Date / Time No Known Allergies Allergy Verified 03/20/20 20:43 Review of Systems ROS Statement: Those systems with pertinent positive or pertinent negative responses have been documented in the HPI. ROS Other: All systems not noted in ROS Statement are negative. Past Medical History Past Medical History: Asthma, COPD, Diabetes Mellitus, Pneumonia Additional Past Medical History / Comment(s): add, bipolar, depression History of Any Multi-Drug Resistant Organisms: MRSA Date of last positivie culture/infection: 2008 MDRO Source:: face Past Surgical History: No Surgical Hx Reported Past Psychological History: ADD/ADHD, Anxiety, Bipolar, Depression, Panic Disorder Smoking Status: Current every day smoker Past Alcohol Use History: Occasional Past Drug Use History: Marijuana General Exam Limitations: no limitations General appearance: alert, in no apparent distress, other (This is a well- developed, well-nourished adult female patient in no acute distress. Vital signs upon presentation are temperature 98.8F, pulse 90, respirations 16, blood pressure 133/85, pulse ox 100% on room air.) Respiratory exam: Present: normal lung sounds bilaterally. Absent: respiratory distress, wheezes, rales, rhonchi, stridor Cardiovascular Exam: Present: regular rate, normal rhythm, normal heart sounds. Absent: systolic murmur, diastolic murmur, rubs, gallop, clicks Extremities exam: Present: full ROM, tenderness (Right anterior and posterior knee. ), normal capillary refill, other (There is soft tissue swelling noted over the right anterior knee. No erythema. There is no laxity with valgus or varus maneuvers. No leg or foot swelling. Patient also has a 2cm soft mass to the left dorsal foot over the fifth metarsal, near the MTP joint. Consistent with cyst.). Absent: normal inspection, pedal edema, joint swelling, calf tenderness Neurological exam: Present: alert, oriented X3, CN II-XII intact Psychiatric exam: Present: normal affect, normal mood Skin exam: Present: warm, dry, intact, normal color. Absent: rash Course Vital Signs 03/20/20 20:39 Temperature 98.8 F Pulse Rate 90 Respiratory 16 Rate Blood Pressure 133/85 O2 Sat by Pulse 100 Oximetry Medical Decision Making - Medical Decision Making 40-year-old female patient presents to the emergency department today for evaluation of right knee pain and a lump to the left foot. Physical examination did reveal mild soft tissue swelling surrounding the right knee. No erythema, no leg swelling. No posterior knee tenderness. No joint instability. There was a round 2 cm, fluctuant mass to the left anterior foot. This is consistent with ganglion cyst. Patient will be discharged to follow-up with her primary care physician in one to 2 days for further discussion of her right knee pain, she is urged to discuss possible orthopedic referral for MRI. She is instructed to follow-up with podiatry for further evaluation of the lump to her left foot. She is instructed to continue home medications for pain relief. Return parameters were discussed in detail. She verbalizes understanding and agrees with this plan. - Radiology Data Radiology results: report reviewed, image reviewed 3 views of the right knee are obtained. Report was reviewed in its entirety. I mpression by Dr. Carroll shows mild osteoarthritis. No fracture seen. Disposition Clinical Impression: Arthritis of right knee, Ganglion cyst of left foot Disposition: HOME SELF-CARE Condition: Good Instructions (If sedation given, give patient instructions): Osteoarthritis (ED ), Ganglion Cysts (ED) Additional Instructions: Use Jin wrap to the right knee for comfort and support. Take anti-inflammatory medication as well as her other home medications for pain control. Apply ice and keep the knee elevated to help with swelling. Follow-up with podiatry for further evaluation of the possible ganglion cyst to the left foot. Follow-up with your primary care physician for recheck in 1-2 days. Return to emergency department for any other new, worsening, or concerning symptoms Is patient prescribed a controlled substance at d/c from ED?: No Referrals: Jonathan Ibarra MD [Primary Care Provider] - 1-2 days Kelvin Hutton DPM [STAFF PHYSICIAN] - 1-2 days Time of Disposition: 21:42
--- NOTE | 2020-03-20 21:18 | XR ---
EXAMINATION TYPE: XR knee complete RT DATE OF EXAM: 03/20/2020 COMPARISON: NONE HISTORY: Knee pain TECHNIQUE: 3 views FINDINGS: There is some mild spurring of the femoral and tibial condyles. I see no fracture nor dislo cation. There is no definite joint effusion. There is minor spurring on the patella. IMPRESSION: Mild osteoarthritis. No fracture seen.
== END 2020-03-20 21:56 | disposition home or self-care (01) ==
LOC: EC 20:36
DX: M17.11 Unilateral primary osteoarthritis, right knee (principal); M67.472 Ganglion, left ankle and foot; F41.9 Anxiety disorder, unspecified; F32.9 Major depressive disorder, single episode, unspecified; F41.0 Panic disorder [episodic paroxysmal anxiety]; F90.9 Attention-deficit hyperactivity disorder, unspecified type; F17.200 Nicotine dependence, unspecified, uncomplicated; Z79.899 Other long term (current) drug therapy
CPT/HCPCS: 99283

== ENCOUNTER 2020-04-19 00:22 | Emergency (ER) | payer OTHER ==
[2020-04-19 00:32] VITALS: BP 116/75; PULSE 87; RESP 16; TEMP 97.9
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
--- NOTE | 2020-04-19 01:18 | XR ---
EXAM: XR Left Foot Complete, 3 or More Views CLINICAL HISTORY: ITS.REASON XR Reason: toe injury TECHNIQUE: Frontal, lateral and oblique views of the left foot. COMPARISON: No relevant prior studies available. FINDINGS: Bones/joints: Hallux valgus measuring 43. Mild osteophytosis at the ankle mortise joint. No acute fracture. No dislocation. Soft tissues: Unremarkable. No radiopaque foreign body. IMPRESSION: No acute findings in the left foot.
[2020-04-19] MEDS ORDERED: traMADol 50 MG STARTER PACK 3 TAB BTL PO STA (01:26)
== END 2020-04-19 01:42 | disposition home or self-care (01) ==
LOC: EC 00:22
DX: S91.202A Unspecified open wound of left great toe with damage to nail, initial encounter (principal); F41.9 Anxiety disorder, unspecified; F32.9 Major depressive disorder, single episode, unspecified; F41.0 Panic disorder [episodic paroxysmal anxiety]; F90.9 Attention-deficit hyperactivity disorder, unspecified type; F17.200 Nicotine dependence, unspecified, uncomplicated; Z79.899 Other long term (current) drug therapy; W22.8XXA Striking against or struck by other objects, initial encounter; Y92.009 Unspecified place in unspecified non-institutional (private) residence as the place of occurrence of the external cause
CPT/HCPCS: 99283

== ENCOUNTER 2020-08-20 19:22 | Inpatient (IN) | payer MEDICAID, OTHER ==
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
[2020-08-20 22:41] LABS: Amphetamine Screen,Urine Not Detected (NotDetected); Benzodiazepines Screen,Urine Not Detected (NotDetected); Cocaine Screen,Urine Not Detected (NotDetected); Opiate Screen,Urine Not Detected (NotDetected); Phencyclidine Screen,Urine Not Detected (NotDetected); Tricyclic Antidepressant,Urine Not Detected (NotDetected); Urn Cannabinoid Scrn Detected (NotDetected)
[2020-08-20 22:42] LABS: Barbiturate Screen,Urine Not Detected (NotDetected); Methadone Screen, Urine Not Detected (NotDetected); Oxycodone Screen, Urine Not Detected (NotDetected)
[2020-08-21] MEDS ORDERED: MAG HYDROX/AL HYDROX/SIMETH 30 ML CUP PO PRN (02:59)
[2020-08-21] MEDS ORDERED: LORazepam 1 MG TAB PO PRN (02:59)
[2020-08-21] MEDS ORDERED: ACETAMINOPHEN TAB 325 MG TAB PO PRN (02:59)
[2020-08-21] MEDS ORDERED: MAGNESIUM HYDROXIDE 2,400 MG/10 ML CUP PO PRN (02:59)
[2020-08-21] MEDS ORDERED: LORazepam 2 MG/ML INJ IM PRN (03:12)
[2020-08-21] MEDS ORDERED: HALOPERIDOL LACTATE 5 MG/ML 1 ML VIAL IM PRN (03:13)
[2020-08-21] MEDS: NICOTINE 14MG/24HR PATCH TRANSDERM SCH (07:55)
[2020-08-21] MEDS ORDERED: VENLAFAXINE HCL ER 37.5 MG CAP PO SCH (11:15)
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
[2020-08-21] MEDS: HYDROcodone/APAP 10-325MG 1 EACH TAB PO PRN ×2 (11:43→17:56)
[2020-08-21] MEDS: VENLAFAXINE HCL ER 37.5 MG CAP PO SCH (11:44)
[2020-08-21] MEDS: MELATONIN 5 MG TABLET PO SCH (21:57)
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
[2020-08-22] MEDS: NICOTINE 14MG/24HR PATCH TRANSDERM SCH (08:08)
[2020-08-22] MEDS: HYDROcodone/APAP 10-325MG 1 EACH TAB PO PRN ×3 (08:09→19:45)
[2020-08-22] MEDS: VENLAFAXINE HCL ER 37.5 MG CAP PO SCH (08:09)
[2020-08-22 09:59] LABS: Basophils # (A) 0.1 k/uL (0-0.2); Basophils % (A) 1 %; Eosinophils # (A) 0.2 k/uL (0-0.7); Eosinophils % (A) 3 %; HCT 42.6 % (34.0-46.0); HGB 14.2 gm/dL (11.4-16.0); Lymphocytes # (A) 2.2 k/uL (1.0-4.8); Lymphocytes % (A) 26 %; MCH 29.8 pg (25.0-35.0); MCHC 33.2 g/dL (31.0-37.0); MCV 89.6 fL (80.0-100.0); Mean Platelet Volume 8.8; Monocytes # (A) 0.5 k/uL (0-1.0); Monocytes % (A) 6 %; Neutrophils # (A) 5.5 k/uL (1.3-7.7); Neutrophils % (A) 64 %; Platelet Count 263 k/uL (150-450); RBC 4.76 m/uL (3.80-5.40); WBC 8.5 k/uL (3.8-10.6)
[2020-08-22 10:11] LABS: ALT 34 U/L (4-34); AST 32 U/L (14-36); African American GFR (CKD) >90 (>60 ml/min/1.73 sqM); Albumin 4.2 g/dL (3.5-5.0); Alkaline Phosphatase 59 U/L (38-126); Anion Gap 12 mmol/L; Blood Urea Nitrogen 11 mg/dL (7-17); Calcium 9.6 mg/dL (8.4-10.2); Carbon Dioxide 23 mmol/L (22-30); Chloride 102 mmol/L (98-107); Cholesterol 226 mg/dL (<200); Glucose 219 mg/dL (74-99); HDL Cholesterol 39 mg/dL (40-60); LDL Cholesterol,Calculated 112 mg/dL (0-99); Non-African American GFR(CKD) >90 (>60 ml/min/1.73 sqM); Potassium 3.9 mmol/L (3.5-5.1); Sodium 137 mmol/L (137-145); Total Bilirubin 0.6 mg/dL (0.2-1.3); Total Protein 6.8 g/dL (6.3-8.2); Triglycerides 373 mg/dL (<150)
[2020-08-22 12:37] VITALS: BMI 45.1
--- NOTE | 2020-08-22 14:27 | P.PN ---
Progress Note - Text Progress Note Date: 08/22/20 Clinical Problems: Major depressive disorder, severe without psychotic features, Anxiety disorder unspecified, History of ADHD, Cannabis use disorder, mild Nicotine dependence Interim history: I reviewed the medical record and interviewed the patient. She is a 40-year-old female admitted to psychiatric unit voluntarily with complaints of suicidal ideation. She reported and improvement in her mood with an absence of suicidal ideation and a marked decrease of anxiety. She attributed the change to the hospital milieu and a conversation that she had with her yesterday. She stated that when she returns home and "things go back to the way they were" then her will "have to leave." She attributed to admission to the marital problems and stress of caring for a disabled son and a rebellious teenage daughter. She is attending therapeutic groups and activities. She slept 7 hours last night. Medical consult appreciated. Mental status exam: She presented as an obese 40-year-old female with multiple tattoos on her arms. She made eye contact and attended to interview. She had no abnormality of psychomotor activity. Her speech was spontaneous with slight increase in rate and rhythm. Her affect was bright and stable. She denied suicidal ideation and wishes. She denied homicidal ideation. She denied feeling hopeless, helpless or worthless. She did not express ideas reference, paranoid ideation or delusions. Her thinking was concrete but her associations were coherent, logical and goal directed. His Nations did not appear to be responding to internal stimuli. Assessment: She appears mildly mentally ill is much improved from admission. The marked improvement in her symptoms suggestive of strong social component. Plan: Continue inpatient treatment. Sick precautions. Continue Effexor XR 37.5 mg daily with increased 75 mg on 08/23/2020. Continue Habitrol 14 mg CAN cessation. Haldol and/or Ativan for agitation or aggression. Narco 10 every 6 when necessary for pain. Encourage continued participation in therapeutic g roups and activities. Evaluate clinical status response to treatment daily basis.
[2020-08-22 19:35] LABS: Hemoglobin A1C 6.2 % (4.0-6.0)
[2020-08-22] MEDS: MELATONIN 5 MG TABLET PO SCH (19:45)
[2020-08-23 06:42] VITALS: PULSE 79
[2020-08-23] MEDS: NICOTINE 14MG/24HR PATCH TRANSDERM SCH (07:53)
[2020-08-23] MEDS: HYDROcodone/APAP 10-325MG 1 EACH TAB PO PRN ×3 (07:54→21:00)
[2020-08-23] MEDS: VENLAFAXINE HCL ER 75 MG CAP PO SCH (07:54)
--- NOTE | 2020-08-23 15:22 | P.PN ---
Progress Note - Text Progress Note Date: 08/23/20 Clinical Problems: Major depressive disorder, severe without psychotic features, Anxiety disorder unspecified, History of ADHD, Cannabis use disorder, mild Nicotine dependence Interim history: I reviewed the medical record and interviewed the patient. She denied feeling depressed or having thoughts of suicide or self-harm. She reported difficulty maintaining sleep but suspects this related to this hospitalization and unfamiliar surroundings. She is attending therapeutic groups and activities. She slept 7 hours last night. Mental status exam: She presented as an obese 40-year-old female with multiple tattoos on her arms. She made eye contact and attended to interview. She had no abnormality of psychomotor activity. Her speech was spontaneous with slight increase in rate and rhythm. Her affect was bright and stable. She denied suicidal ideation and wishes. She denied homicidal ideation. She denied feeling hopeless, helpless or worthless. She did not express ideas reference, paranoid ideation or delusions. Her thinking was concrete but her associations were coherent, logical and goal directed. His Nations did not appear to be responding to internal stimuli. Assessment: She appears mildly mentally ill is much improved from admission. Plan: Continue inpatient treatmensafetyprecautions. Continue Effexor XR 37.5 mg daily with increased 75 mg on 08/23/2020. Continue Habitrol 14 mg CAN cessation. Haldol and/or Ativan for agitation or aggression. Narco 10 every 6 when necessary for pain. Encourage continued participation in therapeutic groups and activities. Evaluate clinical status response to treatment daily basis.
[2020-08-23 18:09] VITALS: TEMP 97.4
[2020-08-23] MEDS: MELATONIN 5 MG TABLET PO SCH (20:59)
[2020-08-24 06:46] VITALS: BP 108/57; RESP 14
[2020-08-24] MEDS: NICOTINE 14MG/24HR PATCH TRANSDERM SCH (08:36)
[2020-08-24] MEDS: VENLAFAXINE HCL ER 75 MG CAP PO SCH (08:36)
[2020-08-24] MEDS: HYDROcodone/APAP 10-325MG 1 EACH TAB PO PRN (08:59)
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
== END 2020-08-24 13:55 | disposition home or self-care (01) | DRG 885 ==
LOC: EC 19:22 → 3MHU 08-21 02:15
PROVIDERS: ADMIT Psychiatry & Neurology Psychiatry; ATTEND Psychiatry & Neurology Psychiatry
DX: F33.2 Major depressive disorder, recurrent severe without psychotic features (principal); R45.851 Suicidal ideations; Z68.42 Body mass index [BMI] 45.0-49.9, adult; E11.9 Type 2 diabetes mellitus without complications; J44.9 Chronic obstructive pulmonary disease, unspecified; E66.01 Morbid (severe) obesity due to excess calories; Z20.822 Contact with and (suspected) exposure to COVID-19; F90.9 Attention-deficit hyperactivity disorder, unspecified type; F12.10 Cannabis abuse, uncomplicated; F17.210 Nicotine dependence, cigarettes, uncomplicated; F41.9 Anxiety disorder, unspecified; F41.0 Panic disorder [episodic paroxysmal anxiety]; M54.5 Low back pain; G89.29 Other chronic pain; Z71.3 Dietary counseling and surveillance; G47.00 Insomnia, unspecified; Z71.6 Tobacco abuse counseling; Z79.899 Other long term (current) drug therapy; Z63.0 Problems in relationship with spouse or partner; Z87.01 Personal history of pneumonia (recurrent); Z86.14 Personal history of Methicillin resistant Staphylococcus aureus infection; Z91.5 Personal history of self-harm; Z56.0 Unemployment, unspecified; Z81.8 Family history of other mental and behavioral disorders
CPT/HCPCS: 80053; 80061; 80306; 82075; 83036; 84443; 85025; 87635; 99285

== ENCOUNTER 2021-06-18 10:53 | Emergency (ER) | payer OTHER ==
[2021-06-18 12:04] VITALS: RESP 18; TEMP 98
--- NOTE | 2021-06-18 12:40 | XR ---
EXAMINATION TYPE: XR chest 2V DATE OF EXAM: 06/18/2021 COMPARISON: 01/28/2020 HISTORY: 41 year-old female shortness of breath TECHNIQUE: PA and lateral views FINDINGS: Heart normal size. Some patchy medial right basilar opacity. No pleural effusion. IMPRESSION: Some patchy medial right basilar atelectasis versus early infiltrate. Clinically correlate.
--- NOTE | 2021-06-18 13:28 | ED ---
General Adult HPI - General Chief complaint: Chest Pain Stated complaint: chest pain, Covid+/symptoms Time Seen by Provider: 06/18/21 12:42 Source: patient, RN notes reviewed, old records reviewed Mode of arrival: ambulatory Limitations: no limitations - History of Present Illness Initial comments: 41-year-old female presenting with cough, fever, myalgia. Patient states she was seen at outside hospital and had tested positive for coronavirus. She's had 2 vaccines. She states she was discharged from this facility. She did not receive any treatment including did not receive monoclonal antibodies. Patient continues to have some mild dyspnea and dry cough. Her symptoms have been present for the past 2 days. Her daughter who is 15 has also had similar symptoms. - Related Data Previous Rx's Medication Instructions Recorded HYDROcodone/APAP 10-325MG [[place] 1 each PO Q6H PRN tab 08/24/20 10-325] Melatonin 5 mg PO HS PRN 30 Days tablet 08/24/20 Nicotine 14Mg/24Hr Patch [Habitrol] 1 patch TRANSDERM DAILY 14 Days 08/24/20 patch Venlafaxine HCl ER [Effexor XR] 75 mg PO DAILY 30 Days cap.er.24h 08/24/20 Allergies Allergy/AdvReac Type Severity Reaction Status Date / Time No Known Allergies Allergy Verified 06/18/21 11:55 Review of Systems ROS Statement: Those systems with pertinent positive or pertinent negative responses have been documented in the HPI. ROS Other: All systems not noted in ROS Statement are negative. Past Medical History Past Medical History: Asthma, COPD, Diabetes Mellitus, Pneumonia Additional Past Medical History / Comment(s): add, bipolar, depression History of Any Multi-Drug Resistant Organisms: MRSA Date of last positivie culture/infection: 2008 MDRO Source:: face Past Surgical History: No Surgical Hx Reported Past Psychological History: ADD/ADHD, Anxiety, Bipolar, Depression, Panic Disorder Smoking Status: Current every day smoker Past Alcohol Use History: None Reported Past Drug Use History: Marijuana General Exam Limitations: no limitations General appearance: alert, in no apparent distress Head exam: Present: atraumatic, normocephalic Eye exam: Present: normal appearance, PERRL ENT exam: Present: normal exam Neck exam: Present: normal inspection. Absent: tenderness, meningismus Respiratory exam: Present: normal lung sounds bilaterally. Absent: respiratory distress, wheezes, rales Cardiovascular Exam: Present: regular rate, normal rhythm GI/Abdominal exam: Present: soft. Absent: distended, tenderness, guarding Extremities exam: Present: normal inspection, normal capillary refill. Absent: pedal edema, calf tenderness Neurological exam: Present: alert, oriented X3, CN II-XII intact. Absent: motor sensory deficit Psychiatric exam: Present: normal affect, normal mood Skin exam: Present: warm, dry, intact. Absent: cyanosis, diaphoretic Course Vital Signs 06/18/21 11:56 Temperature 98 F Pulse Rate 92 Respiratory 18 Rate Blood Pressure 130/91 O2 Sat by Pulse 97 Oximetry EKG Findings - EKG Comments: EKG Findings:: EKG: Normal sinus rhythm, low voltage, rate of 83, MD interval 132, QRS duration 82, QTC [address] segment elevation Medical Decision Making - Medical Decision Making 41-year-old female diagnosed with coronavirus. Chest x-ray showing minimal infiltrate. Patient is in no respiratory distress, no hypoxia she's had 2 previous vaccines against coronavirus. She does meet for monoclonal antibody i nfusion and is agreeable to treatment. She will monitor symptoms at home. She will follow-up with her primary care physician. - Lab Data Lab Results 06/18/21 Range/Units 12:09 Coronavirus (PCR) Detected A (Not Detectd) Disposition Clinical Impression: COVID-19 Disposition: HOME SELF-CARE Condition: Fair Instructions (If sedation given, give patient instructions): Coronavirus Disease 2019 (COVID-19) Additional Instructions: Least take vitamin C, zinc, vitamin D. Please monitor her breathing. Please follow up with her primary care physician. Is patient prescribed a controlled substance at d/c from ED?: No Referrals: Jonathan Ibarra MD [Primary Care Provider] - 1-2 days Time of Disposition: 14:45
[2021-06-18] MEDS ORDERED: SODIUM CHLORIDE 0.9% 50 ML IVPB ONE (14:00)
[2021-06-18] MEDS ORDERED: BAMLANIVIMAB (EUA) 700 MG, ETESEVIMAB (EUA) 1,400 MG in SODIUM CHLORIDE 0.9% 100 ML IVPB ONE (14:00)
[2021-06-18 16:39] VITALS: BP 154/99; PULSE 87
== END 2021-06-18 16:39 | disposition home or self-care (01) ==
LOC: EC 10:53
DX: U07.1 COVID-19 (principal); E11.9 Type 2 diabetes mellitus without complications; J44.9 Chronic obstructive pulmonary disease, unspecified; F31.9 Bipolar disorder, unspecified; F41.9 Anxiety disorder, unspecified; F17.200 Nicotine dependence, unspecified, uncomplicated; F12.90 Cannabis use, unspecified, uncomplicated; Z79.899 Other long term (current) drug therapy
CPT/HCPCS: 93005; 87635; 71046; 99285; 96360; J3490

== ENCOUNTER → 2021-08-30 | Outpatient (CLI) | payer OTHER ==
[2021-08-30 22:37] LABS: African American GFR (CKD) 141.3 (60.0-200.0); Anion Gap 16.3 mmol/L (10.00-18.00); Blood Urea Nitrogen 13.1 mg/dL (9.0-27.0); Carbon Dioxide 23.7 mmol/L (20.0-27.5); Non-African American GFR(CKD) 121.9 (60.0-200.0); Potassium 4.1 mmol/L (3.5-5.5)
[2021-08-31 01:17] LABS: HCT 40.3 % (37.2-46.3); HGB 12.9 g/dL (12.0-15.0); MCH 28.6 pg (27.0-32.0); MCV 89.4 fL (80.0-97.0); Mean Platelet Volume 12.7 fL (9.5-12.2); NRBC Per 100 WBC 0 /100 WBCS (0.0-0.0); Platelet Count 242 X 10*3/uL (140-440); RBC 4.51 X 10*6/uL (4.10-5.20); RDW 13.2 % (11.5-14.5); WBC 8.35 X 10*3/uL (4.50-10.00)
== END | disposition home or self-care (01) ==
LOC: LABPAT 15:05
PROVIDERS: ATTEND Internal Medicine
DX: Z01.812 Encounter for preprocedural laboratory examination (principal); R07.9 Chest pain, unspecified
CPT/HCPCS: 80051; 82565; 84520; 85027

== ENCOUNTER 2021-09-01 10:52 | Day surgery (SDC) | payer OTHER ==
[2021-08-30 13:19] VITALS: BMI 47.1
[~2021-09-01 10:52] MED LIST: ALPRAZolam 0.25 MG TAB PO PRN; ALPRAZolam 0.5 MG TAB PO PRN; ASPIRIN 325 MG TAB PO STA; HEPARIN SODIUM,PORCINE 10,000 UNIT in SODIUM CHLORIDE 0.9% 1,000 ML IRRIGATION PRN; HEPARIN SODIUM,PORCINE 2,500 UNIT in SODIUM CHLORIDE 0.9% 250 ML IRRIGATION PRN; NITROGLYCERIN SL TABS 0.4 MG TAB SUBLINGUAL PRN; SODIUM CHLORIDE 0.9% 1,000 ML in EMPTY BAG 1 BAG IV SCH
[2021-09-01] MEDS ORDERED: SODIUM CHLORIDE 0.9% 1,000 ML IV ONE (11:08)
[2021-09-01 11:16] VITALS: TEMP 97.1
[2021-09-01 11:17] LABS: Glucose,Whole Blood 160 mg/dL (75-99)
[2021-09-01] MEDS ORDERED: VERAPAMIL 2.5 MG/ML 2 ML AMP ONE (11:47)
[2021-09-01] MEDS ORDERED: HEPARIN SODIUM 1,000 UN/ML (10ML VL) ONE (11:47)
[2021-09-01] MEDS ORDERED: LIDOCAINE 1% INJ 10MG/ML (20 ML MDV) ONE (11:47)
[2021-09-01] MEDS ORDERED: fentaNYL (PF) 50 MCG/ML 2 ML AMP ONE (11:47)
[2021-09-01] MEDS: MIDAZOLAM 2 MG/2 ML VIAL IVP ONE ×2 (12:09→12:12)
[2021-09-01] MEDS ORDERED: fentaNYL (PF) 50 MCG/ML 2 ML AMP IVP ONE (12:09)
[2021-09-01] MEDS ORDERED: LIDOCAINE 1% INJ 10MG/ML (20 ML MDV) SQ ONE (12:11)
[2021-09-01] MEDS ORDERED: VERAPAMIL SYRINGE (5 MG/10 ML) INTRAARTER ONE (12:12)
[2021-09-01] MEDS ORDERED: HEPARIN SODIUM 1,000 UN/ML (10ML VL) IVP ONE (12:16)
[2021-09-01] MEDS ORDERED: IOPAMIDOL-370 125ML BTL INJ ONE (12:25)
--- NOTE | 2021-09-01 13:59 | P.CARDCATH ---
Description of Procedure: PROCEDURES PERFORMED: Left heart catheterization, bilateral coronary angiography INDICATION: Chest pain despite CONSENT:I have discussed the risks, benefits and alternative therapies for the above-mentioned procedure and for both sedation/analgesia as well as necessary blood product administration, if indicated, as they pertain to this patient. The patient has indicated understanding and acceptance of the risks and procedures discussed. PROCEDURE: After the risks, benefits and alternatives of the above mentioned procedure explained in detail with the patient, informed consent was obtained. Patient was taken to the catheterization lab and prepped and draped in usual fashion. 1% lidocaine was used to anesthetize the right radial artery. A 6- Dominican sheath was placed in the right radial artery using modified Seldinger technique. Left coronary angiography was performed with a 5-Dominican JL 3.5 catheter and right coronary angiography was performed with a 5-Dominican JR5 catheter in various views. A 5-Dominican FR5 catheter was inserted into the left ventricle and pressure measurements were obtained. The right radial sheath was removed and a TR band was placed with hemostasis achieved. The patient tolerated the procedure well. Patient was transported back to the post catheterization holding area in stable condition. Conscious Sedation: Patient was monitored under the direct supervision of vision of myself for conscious sedation using Versed and fentanyl for a total duration of 13 minutes HEMODYNAMICS: Aorta: 143/78 LV: 144/7, LVEDP 16 SELECTIVE CORONARY ARTERIOGRAPHY: LEFT MAIN: The left main is a large caliber vessel which bifurcates into the LAD and circumflex. There is no stenosis. LEFT ANTERIOR DESCENDING CORONARY ARTERY: LAD is a large caliber vessel which wraps around to the apex. There is no stenosis. LEFT CIRCUMFLEX CORONARY ARTERY: Left circumflex is a moderate caliber vessel with no significant stenosis. RIGHT CORONARY ARTERY: The right coronary artery is a large caliber vessel which gives off a PDA and PLV branch and is the dominant vessel. There is no stenosis. FINAL IMPRESSION: 1. Normal coronary arteries as described above. 2. Normal left sided filling pressures. PLAN: 1. Aggressive risk factor modification per most recent ACC/AHA guidelines. 2. Followup in the office in 1-2 weeks.
[2021-09-01 15:09] VITALS: BP 153/78; RESP 18
[2021-09-01 15:49] VITALS: PULSE 88
== END 2021-09-01 16:22 | disposition home or self-care (01) ==
LOC: CATHCVL 10:52
PROVIDERS: ATTEND Internal Medicine
DX: R07.9 Chest pain, unspecified (principal); I10 Essential (primary) hypertension; J44.9 Chronic obstructive pulmonary disease, unspecified; F32.A Depression, unspecified; F41.0 Panic disorder [episodic paroxysmal anxiety]; F41.9 Anxiety disorder, unspecified; E11.9 Type 2 diabetes mellitus without complications; E66.9 Obesity, unspecified; Z68.42 Body mass index [BMI] 45.0-49.9, adult; R00.2 Palpitations; Z87.891 Personal history of nicotine dependence; Z20.822 Contact with and (suspected) exposure to COVID-19; Z79.84 Long term (current) use of oral hypoglycemic drugs; Z79.899 Other long term (current) drug therapy
CPT/HCPCS: 93458; 81025; 87635; C1894; J2250; J2001; J3010; J1644; Q9967

== ENCOUNTER 2023-06-19 21:57 | Emergency (ER) | payer OTHER ==
[2023-06-19] MEDS ORDERED: ACETAMINOPHEN TAB 500 MG TAB PO STA (22:14)
--- NOTE | 2023-06-19 22:21 | ED ---
URI HPI - General Source: patient, RN notes reviewed Mode of arrival: ambulatory Limitations: no limitations <Kacy Abraham - Last Filed: 06/19/23 22:55> <David Santiago - Last Filed: 06/20/23 01:27> - General Chief Complaint: Upper Respiratory Infection Stated Complaint: Congested Time Seen by Provider: 06/19/23 22:07 - History of Present Illness Initial Comments: Patient is a 43-year-old female presented ER with chief complaint of congestion. Patient states she woke up yesterday and was mildly congested. She reports her recently tested positive for COVID-19. Patient states this morning she woke up her congestion was worse and she is having mild shortness of breath with coughing. Patient is also endorsing mild chest pain with coughing. Patient also has a complaint of right upper quadrant pain. Patient reports she has a history of gallstones and she feels she is having an attack. She has been nauseous and having chills for the past couple of months. She states food makes it worse. Patient reports she is also been having diarrhea and reporting her abdomen is more distended than normal. (Kacy Abraham) - Related Data Home Medications Medication Instructions Recorded Confirmed Aspirin 81 mg PO DAILY 08/30/21 09/01/21 Dextroamphetamine/Amphetamine 30 mg PO TID 08/30/21 09/01/21 [Adderall] HYDROcodone/APAP 10-325MG [[place] 1 each PO QID 08/30/21 09/01/21 10-325] LORazepam [Ativan] 1 mg PO BID 08/30/21 09/01/21 Acetaminophen [Tylenol Extra 1,000 mg PO DAILY PRN 09/01/21 09/01/21 Strength] Albuterol Inhaler [Ventolin Hfa 1 puff INHALATION RT-QID 09/01/21 09/01/21 Inhaler] Chlorthalidone 25 mg PO DAILY 09/01/21 09/01/21 Dapagliflozin Propanediol [Farxiga] 10 mg PO DAILY 09/01/21 09/01/21 Famotidine 20 mg PO DAILY 09/01/21 09/01/21 Montelukast [Singulair] 10 mg PO DAILY 09/01/21 09/01/21 Allergies Allergy/AdvReac Type Severity Reaction Status Date / Time No Known Allergies Allergy Verified 06/19/23 22:01 Review of Systems ROS Other: All systems not noted in ROS Statement are negative. <Kacy Abraham - Last Filed: 06/19/23 22:55> ROS Other: All systems not noted in ROS Statement are negative. <Chase Santiagoua - Last Filed: 06/20/23 01:27> ROS Statement: Those systems with pertinent positive or pertinent negative responses have been documented in the HPI. Past Medical History Past Medical History: Asthma, COPD, Diabetes Mellitus, Hyperlipidemia, Hypertension, Pneumonia Additional Past Medical History / Comment(s): NOT TAKING DIABETIC MEDS. CHEST PAIN History of Any Multi-Drug Resistant Organisms: MRSA Date of last positivie culture/infection: 2008 MDRO Source:: face Past Surgical History: No Surgical Hx Reported Past Anesthesia/Blood Transfusion Reactions: No Reported Reaction Past Psychological History: ADD/ADHD, Anxiety, Bipolar, Depression, Panic Disorder Smoking Status: Current every day smoker - Past Family History Mother Family Medical History: No Reported History Additional Family Medical History / Comment(s): NOT SURE OF FAMILY HX <Kacy Abraham - Last Filed: 06/19/23 22:55> General Exam Limitations: no limitations General appearance: alert, in no apparent distress Head exam: Present: atraumatic, normocephalic, normal inspection Eye exam: Present: normal appearance, PERRL, EOMI, other (xanthoma bilaterlly ). Absent: scleral icterus, conjunctival injection, periorbital swelling ENT exam: Present: normal exam, normal oropharynx, mucous membranes moist, TM's normal bilaterally Neck exam: Present: normal inspection. Absent: tenderness, meningismus, lymphadenopathy Respiratory exam: Present: normal lung sounds bilaterally. Absent: respiratory distress, wheezes, rales, rhonchi, stridor Cardiovascular Exam: Present: regular rate, normal rhythm, normal heart sounds. Absent: systolic murmur, diastolic murmur, rubs, gallop, clicks GI/Abdominal exam: Present: soft, tenderness (RUQ/epigastric pain), normal bowel sounds. Absent: distended, guarding, rebound, rigid Neurological exam: Present: alert, oriented X3, CN II-XII intact Psychiatric exam: Present: normal affect, normal mood Skin exam: Present: warm, dry, intact, normal color. Absent: rash <IsrealKacy borrego - Last Filed: 06/19/23 22:55> Course Vital Signs 06/19/23 21:59 Temperature 98.0 F Pulse Rate 94 Respiratory 18 Rate Blood Pressure 165/120 O2 Sat by Pulse 97 Oximetry Medical Decision Making <JaradKacy - Last Filed: 06/19/23 22:55> - Lab Data Result diagrams: 06/19/23 23:20 06/19/23 23:20 <PatricecooperDavid cain - Last Filed: 06/20/23 01:27> - Medical Decision Making Was pt. sent in by a medical professional or institution (, PA, ADMINISTRATIVE FELLOW, urgent care, hospital, or snf...) When possible be specific @ -No Did you speak to anyone other than the patient for history (EMS, parent, family, police, friend...)? What history was obtained from this source @ -No Did you review nursing and triage notes (agree or disagree)? Why? @ -I reviewed and agree with nursing and triage notes Were old charts reviewed (outside hosp., previous admission, EMS record, old EKG, old radiological studies, urgent care reports/EKG's, snf records)? Report findings @ -No old charts were reviewed Differential Diagnosis (chest pain, altered mental status, abdominal pain women, abdominal pain men, vaginal bleeding, weakness, fever, dyspnea, syncope, headache, dizziness, GI bleed, back pain, seizure, CVA, palpatations, mental health, musculoskeletal)? @ -Differential Abdominal Pain Women: Appendicitis, Cholecystitis, diverticulosis, ischemic bowel, pancreatitis, hepatitis, UTI, gastroenteritis, AAA, incarcerated hernia, bowel obstruction, constipation, inflammatory bowel, hepatitis, peptic ulcer disease, splenic infarction, perforated viscus, vulvitis, ovarian torsion, PID, kidney stone, placenta abruption, this is not meant to be an all-inclusive list EKG interpreted by me (3pts min.). @ -None X-rays interpreted by me (1pt min.). @ -Chest x-ray pending CT interpreted by me (1pt min.). @ -None done U/S interpreted by me (1pt. min.). @ -Gallbladder ultrasound pending What testing was considered but not performed or refused? (CT, X-rays, U/S, labs)? Why? @ -None What meds were considered but not given or refused? Why? @ -None Did you discuss the management of the patient with other professionals (professionals i.e. , PHAM, ADMINISTRATIVE FELLOW, lab, RT, psych nurse, social insurance adviser, title abstractor, teacher, chief privacy officer, piano case maker)? Give summary @ -No Was smoking cessation discussed for >3mins.? @ -No Was critical care preformed (if so, how long)? @ -No Were there social determinants of health that impacted care today? How? (Homelessness, low income, unemployed, alcoholism, drug addiction, transportation, low edu. Level, literacy, decrease access to med. care, care home, rehab)? @ -No Was there de-escalation of care discussed even if they declined (Discuss DNR or withdrawal of care, Hospice)? DNR status @ -No What co-morbidities impacted this encounter? (DM, HTN, Smoking, COPD, CAD, Cancer, CVA, ARF, Chemo, Hep., AIDS, mental health diagnosis, sleep apnea, morbid obesity)? @ -Obesity, diabetes, hypertension, COPD Was patient admitted / discharged? Hospital course, mention meds given and route, prescriptions, significant lab abnormalities, going to OR and other pertinent info. @ -Pending. Patient is a 43-year-old female presented ER with chief complaint of congestion and abdominal pain. Patient's vital signs are stable. History and physical exam were completed. Labs ordered. Ultrasound and chest x-ray are pending. Patient received by mouth Tylenol. Patient is being signed out to Chase Santiago PA-C pending lab/imaging results and disposition. ] (Kacy Abraham) Was patient admitted / discharged? Hospital course, mention meds given and route, prescriptions, significant lab abnormalities, going to OR and other pertinent info. @ -Discharge 43-year-old female presented to the ED with 1 day history of cough and congestion. Also while here noted some epigastric pain. US of the Gallbladder Interpreted by Me Shows Cholelithiasis without Evidence of Acute Cholecystitis. Also Upper Normal Common Bile Duct at 0.6 Cm. Laboratory studies reviewed. CBC unremarkable. CMP remarkable for mild transaminitis with AST of 40 and ALT at 35. Serology panel shows COVID positive. At this time, patient discharged home in stable condition. Regarding the upper limits of common bile duct dilation and transaminitis discuss close return precautions with patient who verbalizes agreement. Undiagnosed new problem with uncertain prognosis? @ -No Drug Therapy requiring intensive monitoring for toxicity (Heparin, Nitro, Insulin, Cardizem)? @ -No Were any procedures done? @ -No Diagnosis/symptom? @ -COVID Acute, or Chronic, or Acute on Chronic? @ -Acute Uncomplicated (without systemic symptoms) or Complicated (systemic symptoms)? @ -Uncomplicated Side effects of treatment? @ -No Exacerbation, Progression, or Severe Exacerbation? @ -No Poses a threat to life or bodily function? How? (Chest pain, [place], [place], pneumonia, PE, COPD, DKA, ARF, appy, cholecystitis, CVA, Diverticulitis, Homicidal, Suicidal, threat to staff... and all critical care pts) @ -No (David Santiago) - Lab Data Lab Results 06/19/23 06/19/23 06/19/23 Range/Units 23:20 23:20 23:20 WBC 10.6 (3.8-10.6) k/uL RBC 4.56 (3.80-5.40) m/uL Hgb 13.7 (11.4-16.0) gm/dL Hct 40.1 (34.0-46.0) % MCV 88.1 (80.0-100.0) fL MCH 30.0 (25.0-35.0) pg MCHC 34.1 (31.0-37.0) g/dL RDW 12.9 (11.5-15.5) % Plt Count 239 (150-450) k/uL MPV 9.5 Sodium 136 L (137-145) mmol/L Potassium 4.0 (3.5-5.1) mmol/L Chloride 99 (98-107) mmol/L Carbon Dioxide 26 (22-30) mmol/L Anion Gap 11 mmol/L BUN 14 (7-17) mg/dL Creatinine 0.49 L (0.52-1.04) mg/dL Est GFR (CKD-EPI)AfAm >90 (>60 ml/min/1.73 sqM) Est GFR (CKD-EPI)NonAf >90 (>60 ml/min/1.73 sqM) Glucose 155 H (74-99) mg/dL Calcium 9.3 (8.4-10.2) mg/dL Total Bilirubin 0.4 (0.2-1.3) mg/dL AST 40 H (14-36) U/L ALT 35 H (4-34) U/L Alkaline Phosphatase 82 (38-126) U/L Total Protein 6.7 (6.3-8.2) g/dL Albumin 3.8 (3.5-5.0) g/dL Amylase 35 (30-110) U/L Lipase 38 (23-300) U/L Influenza Type A (PCR) Not Detected (Not Detectd) Influenza Type B (PCR) Not Detected (Not Detectd) RSV (PCR) Not Detected (Not Detectd) SARS-CoV-2 (PCR) Detected A (Not Detectd) Disposition <Kacy Abraham - Last Filed: 06/19/23 22:55> Is patient prescribed a controlled substance at d/c from ED?: No Time of Disposition: 01:27 <David Santiago - Last Filed: 06/20/23 01:27> Clinical Impression: COVID Disposition: HOME SELF-CARE Condition: Good Additional Instructions: Please return to the Emergency Department if symptoms worsen or any other concerns. Please follow up with your PCP. Referrals: Nonstaff,Physician [Primary Care Provider] - 1-2 days
[2023-06-19 22:26] VITALS: RESP 18
[2023-06-19 23:40] LABS: HCT 40.1 % (34.0-46.0); HGB 13.7 gm/dL (11.4-16.0); MCHC 34.1 g/dL (31.0-37.0); MCV 88.1 fL (80.0-100.0); Mean Platelet Volume 9.5; Platelet Count 239 k/uL (150-450); RBC 4.56 m/uL (3.80-5.40); RDW 12.9 % (11.5-15.5); WBC 10.6 k/uL (3.8-10.6)
[2023-06-19 23:49] LABS: ALT 35 U/L (4-34); AST 40 U/L (14-36); African American GFR (CKD) >90 (>60 ml/min/1.73 sqM); Albumin 3.8 g/dL (3.5-5.0); Alkaline Phosphatase 82 U/L (38-126); Amylase 35 U/L (30-110); Anion Gap 11 mmol/L; Blood Urea Nitrogen 14 mg/dL (7-17); Calcium 9.3 mg/dL (8.4-10.2); Carbon Dioxide 26 mmol/L (22-30); Chloride 99 mmol/L (98-107); Glucose 155 mg/dL (74-99); Lipase 38 U/L (23-300); Non-African American GFR(CKD) >90 (>60 ml/min/1.73 sqM); Sodium 136 mmol/L (137-145); Total Bilirubin 0.4 mg/dL (0.2-1.3); Total Protein 6.7 g/dL (6.3-8.2)
--- NOTE | 2023-06-20 00:59 | XR ---
EXAM: XR Chest, 2 Views CLINICAL HISTORY: ITS.REASON XR Reason: cough TECHNIQUE: Frontal and lateral views of the chest. COMPARISON: XR Chest dated 06/18/21 FINDINGS: Lungs: Unremarkable. No consolidation. Pleural space: Unremarkable. No pneumothorax. Heart: Unremarkable. No cardiomegaly. Mediastinum: Unremarkable. Normal mediastinal contour. Bones/joints: Unremarkable. No acute fracture. IMPRESSION: No evidence of acute cardiopulmonary disease.
--- NOTE | 2023-06-20 01:06 | US ---
EXAM: US Abdomen Limited, Gallbladder CLINICAL HISTORY: ITS.REASON US Reason: pain TECHNIQUE: Real-time ultrasound of the right upper quadrant with image documentation. COMPARISON: US Abdomen Limited Gallbladder dated 04/29/2018 FINDINGS: Liver: Enlarged liver, 18.4 cm. Increased echogenicity. Gallbladder: Gallbladder stones. At least 2 in the gallbladder neck, slightly mobile. Largest 1.2 cm. No gallbladder wall thickening or pericholecystic fluid. Negative sonographic Lee sign. Common bile duct: No stones. 0.6 cm, upper normal. Was measured at 0.3 cm on prior. Pancreas: Unremarkable as visualized. IMPRESSION: 1. Cholelithiasis without evidence of acute cholecystitis. 2. Upper normal common bile duct 0.6 cm. Was 0.3 cm on the prior. If further concern for common duct obstruction, consider MRCP. 3. Echogenic, enlarged liver may represent fatty liver versus other hepatic infiltrative process.
[2023-06-20 01:49] VITALS: BP 148/92; PULSE 92; TEMP 98.2
== END 2023-06-20 01:40 | disposition home or self-care (01) ==
LOC: EC 21:57
DX: U07.1 COVID-19 (principal); J44.89 Other specified chronic obstructive pulmonary disease; I10 Essential (primary) hypertension; E11.9 Type 2 diabetes mellitus without complications; F41.9 Anxiety disorder, unspecified; F31.9 Bipolar disorder, unspecified; F17.200 Nicotine dependence, unspecified, uncomplicated; Z79.899 Other long term (current) drug therapy; Z79.82 Long term (current) use of aspirin
CPT/HCPCS: 36415; 71046; 76705; 80053; 82150; 83690; 85027; 87636; 99284

== ENCOUNTER 2024-04-15 03:02 | Emergency (ER) | payer OTHER ==
[2024-04-15 03:14] VITALS: RESP 16; TEMP 97.9
[2024-04-15] MEDS: HYDROmorphone 1 MG/ML 1 ML SYRINGE IM STA (03:52)
[2024-04-15] MEDS: KETOROLAC 15 MG/ML 1 ML VIAL IM STA (03:52)
[2024-04-15] MEDS: tiZANidine 4 MG TAB PO STA ×2 (03:53→05:08)
[2024-04-15] MEDS: LIDOCAINE 4% PATCH TOPICAL ONE (05:06)
--- NOTE | 2024-04-15 05:13 | ED ---
Back Pain HPI - General Chief Complaint: Back Pain/Injury Stated Complaint: Back Pain Time Seen by Provider: 04/15/24 03:19 Source: patient Limitations: no limitations - History of Present Illness Initial Comments: Patient is a 44 y/o female PMH chronic back pain presenting for acute exacerbation of chronic back pain. Started 3 days [employer]. Pt does not remember any particular inciting factor. States that it is worse when sitting upright, improves with lying flat or standing though she was unable to get comfortable with lying down. Radiates down her right leg more than her left. She does currently go to a pain clinic for her back pain and takes [place] but Newark has not provided relief from her pain. Denies recent falls or trauma. She denies any saddle anesthesia, urinary incontinence or difficulty urinating, or incontinence of stool. Denies fevers or chills. Denies IV drug use. Denies history of cancer. No recent spinal injections or spinal procedures. Denies n umbness or weakness. Denies chest pain or shortness of breath. - Related Data Home Medications Medication Instructions Recorded Confirmed Aspirin 81 mg PO DAILY 08/30/21 09/01/21 Dextroamphetamine/Amphetamine 30 mg PO TID 08/30/21 09/01/21 [Adderall] HYDROcodone/APAP 10-325MG [[place] 1 each PO QID 08/30/21 09/01/21 10-325] LORazepam [Ativan] 1 mg PO BID 08/30/21 09/01/21 Acetaminophen [Tylenol Extra 1,000 mg PO DAILY PRN 09/01/21 09/01/21 Strength] Albuterol Inhaler [Ventolin Hfa 1 puff INHALATION RT-QID 09/01/21 09/01/21 Inhaler] Chlorthalidone 25 mg PO DAILY 09/01/21 09/01/21 Dapagliflozin Propanediol [Farxiga] 10 mg PO DAILY 09/01/21 09/01/21 Famotidine 20 mg PO DAILY 09/01/21 09/01/21 Montelukast [Singulair] 10 mg PO DAILY 09/01/21 09/01/21 Previous Rx's Medication Instructions Recorded tiZANidine [Zanaflex] 2 mg PO Q8HR PRN 3 Days #10 tablet 04/15/24 Allergies Allergy/AdvReac Type Severity Reaction Status Date / Time No Known Allergies Allergy Verified 04/15/24 03:14 Review of Systems ROS Statement: Those systems with pertinent positive or pertinent negative responses have been documented in the HPI. ROS Other: All systems not noted in ROS Statement are negative. Past Medical History Past Medical History: Asthma, COPD, Diabetes Mellitus, Hyperlipidemia, Hypertension, Pneumonia Additional Past Medical History / Comment(s): NOT TAKING DIABETIC MEDS. CHEST PAIN History of Any Multi-Drug Resistant Organisms: MRSA Date of last positivie culture/infection: 2008 MDRO Source:: face Past Surgical History: No Surgical Hx Reported Past Anesthesia/Blood Transfusion Reactions: No Reported Reaction Past Psychological History: ADD/ADHD, Anxiety, Bipolar, Depression, Panic Disorder Smoking Status: Current every day smoker Past Alcohol Use History: None Reported Past Drug Use History: None Reported - Past Family History Mother Family Medical History: No Reported History Additional Family Medical History / Comment(s): NOT SURE OF FAMILY HX General Exam - General Exam Comments Initial Comments: PE: CONSTITUTIONAL: No apparent distress, well appearing, somewhat uncomfortable SKIN: Warm, dry, no jaundice, hives or petechiae, no skin changes overlying the spine or back EYES: Pupils are equally round, extraocular movements intact without nystagmus, clear conjunctiva, non-icteric sclera HENT: Normocephalic, atraumatic, moist mucus membranes, oropharynx clear without exudates NECK: , Full range of motion, normal appearance PULMONARY: Clear to auscultation without wheezes, rhonchi, or rales, normal excursion, no accessory muscle use and no stridor CARDIOVASCULAR: Regular rate, rhythm, normal S1 and S2. No appreciated murmurs, rubs or gallops. Strong radial pulses, strong dorsalis pedis pulses with intact distal perfusion. No lower extremity edema GASTROINTESTINAL: Soft, active bowel sounds throughout, non-tender, non- distended, no palpable masses, no rebound or guarding. No hepatosplenomegaly MUSCULOSKELETAL: Extremities have no gross deformity, no edema, redness, or swelling. No calf swelling. Right sided low back muscular tenderness to palpation, no midline spinal tenderness, no fluctuance, positive straight leg raise test with raising right leg NEUROLOGIC:_a/o x 3, GCS 15, normal mentation and speech. Moves all extremities x 4 without motor or sensory deficit PSYCHIATRIC:_normal mood and affect, thought process is clear and linear Limitations: no limitations Course Vital Signs 04/15/24 04/15/24 03:11 06:08 Temperature 97.9 F Pulse Rate 114 H 99 Respiratory 16 16 Rate Blood Pressure 160/77 114/83 O2 Sat by Pulse 96 98 Oximetry Medical Decision Making - Medical Decision Making Was pt. sent in by a medical professional or institution (, PA, BUSINESS DEVELOPMENT COORDINATOR, urgent care, hospital, or fdc...) When possible be specific @ -No Did you speak to anyone other than the patient for history (EMS, parent, family, police, friend...)? What history was obtained from this source @ -No Did you review nursing and triage notes (agree or disagree)? Why? @ -I reviewed and agree with nursing and triage notes Were old charts reviewed (outside hosp., previous admission, EMS record, old EKG, old radiological studies, urgent care reports/EKG's, fdc records)? Report findings @Medical records reviewed, I reviewed MRI report patient presented with, MRI lumbar spine performed in January, did not show any impingement of the central spinal canal Differential Diagnosis (chest pain, altered mental status, abdominal pain women, abdominal pain men, vaginal bleeding, weakness, fever, dyspnea, syncope, headache, dizziness, GI bleed, back pain, seizure, CVA, palpatations, mental health, musculoskeletal)? @Differential Back Pain: Strain, zoster, cauda equina syndrome, epidural abscess, vertebral osteomyelitis, discitis, fracture, subluxation, disc herniation, DJD, spinal stenosis, dissection, AAA, pyelonephritis, kidney stone, this is not meant to be an all-inclusive list. This patient has not had any recent injuries, has no chest pain or shortness of breath, no abdominal pain, no red flag symptoms (i.e. no fever, is not immunocompromised, no history of cancer, IVDU, no numbness, weakness, saddle anesthesia urinary incontinence or incontinence of stool, no rashes; has equal pulses in all 4 extremities) therefor I do not feel further labs or imaging indicated at this point. EKG interpreted by me (3pts min.). @ -As above X-rays interpreted by me (1pt min.). @ -None done CT interpreted by me (1pt min.). @ -None done U/S interpreted by me (1pt. min.). @ -None done What testing was considered but not performed or refused? (CT, X-rays, U/S, lab s)? Why? @ -None What meds were considered but not given or refused? Why? @ -None Did you discuss the management of the patient with other professionals (professionals i.e. , PA, BUSINESS DEVELOPMENT COORDINATOR, lab, RT, psych nurse, long term care social worker, second baller, teacher, quarantine officer, transplant case manager)? Give summary @ -No Was smoking cessation discussed for >3mins.? @ -No Was critical care preformed (if so, how long)? @ -No Were there social determinants of health that impacted care today? How? (Homelessness, low income, unemployed, alcoholism, drug addiction, transportation, low edu. Level, literacy, decrease access to med. care, group home, rehab)? @ -No Was there de-escalation of care discussed even if they declined (Discuss DNR or withdrawal of care, Hospice)? @ -No What co-morbidities impacted this encounter? (DM, HTN, Smoking, COPD, CAD, Cancer, CVA, ARF, Chemo, Hep., AIDS, mental health diagnosis, sleep apnea, morbid obesity)? @ -Obesity, chronic pain Was patient admitted / discharged? Hospital course, mention meds given and route, prescriptions, significant lab abnormalities, going to OR and other pertinent info. @Discharged- Patient is a 44-year-old female with history of chronic back pain presenting for acute exacerbation of chronic low back pain with sciatica. Denies recent trauma, spinal procedures or injections, IVDU, cancer, saddle anesthesia, difficulty urinating or urinary incontinence, stool incontinence, fevers, chest pain, shortness of breath. Exam significant for no midline spinal tenderness palpation, no overlying skin changes, right paraspinal muscle tenderness, positive right straight leg raise, 2+ DP pulses in the bilateral lower extremities, lower extremities are neurovascularly intact. Discussed with patient plan for muscle relaxant, as patient is opioid tolerant we will do IM D ilaudid, lidocaine patch, Toradol and reassess. Patient is agreeable with plan. On reassessment patient appears more comfortable and states that pain improves briefly though still continues to endorse pain. Discussed additional 2 mg Zanaflex and reassess. Patient agreeable. On reassessment patient is resting comfortably in bed. Endorses mild improvement in pain though still endorses. I discussed with the patient admission for observation for pain control potentially to see orthopedics versus discharge home to follow-up with her pain clinic. Patient ultimately decided on discharge. In my medical judgment there is currently no evidence of an immediate life- threatening or surgical condition. Discharge is therefore indicated at this time. Discharge treatment instructions, follow up instructions, and appropriate emergency department return precautions were discussed with the patient and/or medical decision maker. Patient and/or medical decision maker expressed understanding of and agreed with the treatment plan, follow up instructions, and emergency department return precaution. All patient's and/or medical decision maker's questions were answered. Undiagnosed new problem with uncertain prognosis? @ -No Drug Therapy requiring intensive monitoring for toxicity (Heparin, Nitro, Insulin, Cardizem)? @ -No Were any procedures done? @ -No Diagnosis/symptom? @Acute on chronic low back pain, sciatica Acute, or Chronic, or Acute on Chronic? @Acute on chronic Uncomplicated (without systemic symptoms) or Complicated (systemic symptoms)? @Uncomplicated Side effects of treatment? @ -No Exacerbation, Progression, or Severe Exacerbation? @ -No Poses a threat to life or bodily function? How? (Chest pain, [place], VT, pneumonia, PE, COPD, DKA, ARF, appy, cholecystitis, CVA, Diverticulitis, Homicidal, Suicidal, threat to staff... and all critical care pts) @ -No Disposition Clinical Impression: Sciatica Disposition: HOME SELF-CARE Condition: Good Instructions (If sedation given, give patient instructions): Acute Low Back Pain (ED) Additional Instructions: Every disease is a spectrum and a small chance still exists that a serious condition could develop, for this reason, please monitor yourself closely for new, changing or worsening symptoms, symptoms that improve in 48 hours, [fever], inability to tolerate/keep down fluids or your medications, inability to follow up with outpatient providers as instructed and should you experience these symptoms or should you have any further concerns for your wellbeing please return to the ED or call 911 immediately. Your pain can be treated with ibuprofen and acetaminophen. You can take up to 400-600 mg of ibuprofen (Advil, Motrin) 3 times daily (every 8 hours) but can also use lower doses if this relieves your pain. Some people prefer naproxen (Aleve, Naprosyn) which can be taken in doses of 500 mg up to twice a day. Do not take both of these medicines together, and do not combine either with ketorolac (Toradol), meloxicam (Mobic), or indomethacin (Tivorbex). Some people can develop stomach discomfort with higher doses of either ibuprofen or naproxen, if this develops decrease your dose or stop taking it. If you need to take this dose daily for more than a week, please schedule an appointment for re-evaluation with your PCP. Please take these medications with food. You can take up to 1000 mg of acetaminophen (Tylenol) every 6 hours. Be careful as this is included in some medicines like Nyquil, [place], Percocet, Vicodin, STANBACK, Goody's Powders, and Excedrin. You can also use lidocaine patches for topical pain. You can purchase 4% patches over the counter at most drug stores. These can be helpful for pain from your muscles or bones. Return to the emergency department if you develop constipation, urinary retention, loss of bowel or bladder function, numbness or tingling into the rectum, groin, or develop fevers and chills PLEASE call your primary care physician as soon as possible to arrange / discuss plan for followup appointment. Appointment in the next 1-3 days is strongly encouraged if possible. PLEASE let us know here before you leave if there is anything further we can do to be of any assistance. Take care and feel Better! Prescriptions: tiZANidine [Zanaflex] 2 mg PO Q8HR PRN 3 Days #10 tablet PRN Reason: Muscle Spasm Is patient prescribed a controlled substance at d/c from ED?: No When asked, does pt state using other controlled substances?: Yes If prescribed controlled substance>3 days was MAPS reviewed?: Prescribed <3 Days Referrals: Jonathan Ibarra MD [Primary Care Provider] - 1-2 days
[2024-04-15 06:09] VITALS: BP 114/83; PULSE 99
== END 2024-04-15 06:08 | disposition home or self-care (01) ==
LOC: EC 03:02
DX: G89.29 Other chronic pain (principal); M54.42 Lumbago with sciatica, left side; E66.9 Obesity, unspecified; F17.200 Nicotine dependence, unspecified, uncomplicated
CPT/HCPCS: 99283; 96372 ×2; J1171; J1885